=== PATIENT | male | born 1940 | race Caucasian/White ===

== ENCOUNTER 2017-07-24 00:25 | Emergency (ER) | payer MEDICARE ==
[~2017-07-24] VITALS: Ht 175.3 cm; Wt 99.3 kg
[~2017-07-24 00:25] MED LIST: AMLODIPINE BESY10 MG PO; CLOPIDOGREL75 MG PO; CRESTOR20 MG PO; HUMULIN R100 UNIT/2 SQ; LEVOTHYROXINE88 MCG PO; PIOGLITAZONE HC45 MG PO
--- OUTSIDE RECORDS SUMMARY | 2017-07-24 00:28 | XMS REPORT ---
Author Author [facility] Address Unknown Phone Unavailable Care Team Providers Care Chalk Machine Operator Name Role Phone JUAN CARLOS SMITH Unavailable Unavailable Problems This patient has no known problems. Allergies, Adverse Reactions, Alerts This patient has no known allergies or adverse reactions. Medications This patient has no known medications. Results Test Description Test Time Test Comments Text Results Atomic Results Result Comments MRI BRAIN WO [place] [id number] [place] [address] Patient Name: FIDE ORTEGA MR #: [id number] : 1940 Age/Sex: 76/M Req # : [id number] Adm Physician: JUAN CARLOS SMITH MD Ordered by: CIRO TAYLOR MD Report #: [id number] Location: [facility] Room/Bed: [facility] Procedure: [id number] MRI/MRI BRAIN WO Exam Date: 01/17/17 Exam Time: 1845 REPORT STATUS: Signed ADDENDUM #1 Nonspecific prominence of CSF flow void at the level of the cerebral aqueduct (best seen in image 10, series 2) with predominant marked ventricular dilatation involving the third and bilateral lateral ventricles and normal size of the fourth ventricle raises and includes the differential possibility of acquired aqueduct stenosis in appropriate clinical setting. Additional findings were informed to the ER physician Dr. Vaz by phone at 9:04 PM on 01/17/2017. Signed by: Dr. Viv Vang M.D. on 01/17/2017 9:06 PM ORIGINAL REPORT History: Confusion, altered mental status. Comparison studies: CT head from 01/17/2017. Technique: Sagittal T2; axial DWI, FLAIR, GRE, T2 , T1, Coronal FLAIR. Intravenous contrast: None Findings: Scalp: Normal in signal . No masses . Bone marrow: Normal in signal intensity. Brain sulci: Appropriate for age. Ventricles: Marked ventricular dilatation predominantly involving the lateral and third ventricles disproportionate to the amount of cerebral volume loss. Parenchyma: Nonspecific bilateral frontoparietal confluent and patchy white matter T2/FLAIR hyperintense foci are likely related to small vessel ischemic changes. 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 No masses, hemorrhage, acute vascular insult. Suprasellar region : No abnormalities. Craniocervical junction: Patent foramen magnum. No Chiari malformation . Vessels: Normal flow-voids in the arteries and sinuses. Incidental finding: Moderate right and mild left fluid within the mastoids. Posterior disc osteophyte complex at level C4-C5 results in moderate canal stenosis (seen only in T2 sagittal images). IMPRESSION: 1. No acute intracranial abnormality. 2. Marked ventriculomegaly disproportionate to the amount of cerebral volume loss, may represent normal pressure hydrocephalus or chronic communicating type hydrocephalus in appropriate clinical setting. 3. Mild supratentorial white matter microvascular ischemic changes. 4. 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 Signed by: Dr. Viv Vang M.D. on 01/17/2017 8:31 PM Dictated By: VIV VANG MD 05 Transcribed By: ALEX on 01/17/172030 COPY TO: CIRO TAYLOR MD MRI SPINE CERVICAL WO [place] [id number] Patient Name: FIDE ORTEGA MR #: [id number] : 1940 Age/Sex: 76/M Req #: [id number] [facility] Physician: JUAN CARLOS SMITH MD Ordered by: CIRO TAYLOR MD Report #: [id number] Location: [facility] Room/Bed: [facility] Procedure: [id number] MRI/MRI SPINE CERVICAL WO Exam Date: 01/17/17 Exam Time: 1845 REPORT STATUS: Signed History: Altered mental status, confusion, status post fall. Comparison studies: None Technique: Sagittal T1, T2 and IR, axial T2, T1 and axial gradient echo Intravenous contrast: None Findings: Alignment: Normal lordosis. No scoliosis. Cervicomedullary junction: No abnormalities. Patent foramen magnum. Soft tissues: No T2 hyperintense inflammatory changes. Spinal cord: Normal in size and signal from the foramen magnum through T1 Vertebrae: No fractures, infection or neoplasm. Degenerative changes: C2-C3: No abnormalities. C3-C4: Posterior disc osteophytic complex results in mild canal stenosis. Moderate right and mild left foraminal stenosis due to facet and uncovertebral arthrosis. C4 -C5: Moderate degenerative disc disease with decreased intervertebral disc space and endplate sclerosis. Posterior disc osteophyte complex and thickened ligamentum flavum results in severe canal stenosis. Bilateral severe foraminal stenosis due to facet and uncovertebral arthrosis. C5-C6: Mild degenerative disc disease. Posterior disc osteophyte complex with superimposed 4 mm left paracentral/subarticular disc protrusion effaces and indents anterior thecal sac and results in severe canal stenosis. Bilateral severe foraminal stenosis due to facet and uncovertebral arthrosis. C6-C7: Mild degenerative disc disease. Posterior disc osteophyte complex asymmetric to the left results in moderate canal stenosis. Bilateral moderate foraminal stenosis due to facet and uncovertebral arthrosis. C7-T1 : No abnormalities. IMPRESSION: 1. Multilevel cervical spondylosis extends from level C3-C4 to C6-C7. 2. Severe canal stenosis at C4-C5 and C5-C6. Moderate canal stenosis at C6-C7 and mild canal stenosis at C3-C4. 3. Multilevel foraminal stenosis, particularly moderate right and mild left at C3-C4, bilateral severe at C4-C5 and C5-C6, bilateral moderate at C6-C7. Signed by: Dr. Viv Vang M.D. on 01/17/2017 9:14 PM Dictated By: VIV VANG MD 13 COPY TO: CIRO TAYLOR MD PELVIS AP 1-2 VIEWS [place] [address] Patient Name: FIDE ORTEGA MR #: [id number] : 1940 Age/Sex: 76/M Req #: [id number] Adm Physician: Ordered by: CIRO TAYLOR MD Report #: [id number] Location: ER Room/Bed: Procedure: [id number] DX/PELVIS AP 1-2 VIEWS Exam Date: 01/17/17 Exam Time: 1120 REPORT STATUS: Signed PROCEDURE: X-RAY PELVIS, AP VIEW COMPARISON: None. INDICATIONS: FALL FINDINGS: The right hip and proximal femur are normal. There is asymmetry of the appearance of the left hip, which may be a consequence of rotation. The joint spaces are well-maintained. Sacroiliac joints are intact. Sacral foramina are intact superiorly. Degenerative disc changes of the lower lumbar spine partially visualized. Atherosclerotic vascular calcifications. CONCLUSION: Asymmetry of the left hip with superimposition of the greater trochanter over the lateral aspect of the femoral head and neck may be related to rotation. Dedicated radiographs of the left hip are suggested for further evaluation, particularly if the patient endorses left hip pain. Dictated by: Christel Marin M.D. on 2016 at 12:11 Electronically approved by: Christel Marin M.D. on 2016 at 12:11 Dictated By: CHRISTEL MARIN MD 1211 Transcribed By: RILEY on 01/17/17 1211 COPY TO: CIRO TAYLOR MD CHEST SINGLE (PORTABLE) [place] [address] Patient Name: FIDE ORTEGA MR #: [id number] : 1940 Age/Sex: 76/M Req #: [id number] Adm Physician: Ordered by: CIRO TAYLOR MD Report #: [id number] Location: ER Room/Bed: Procedure: [id number] DX/CHEST SINGLE (PORTABLE) Exam Date: 01/17/17 Exam Time: 1120 REPORT STATUS: Signed PROCEDURE: CHEST SINGLE (PORTABLE) COMPARISON: None. INDICATIONS: FALL FINDINGS: The lungs are well-inflated. There is patchy airspace opacity in the perihilar region of the right lung. No pleural effusion or pneumothorax. Cardiomediastinal contour and pulmonary vasculature are within normal limits for portable, AP technique. No acute osseous abnormality. CONCLUSION: Patchy right perihilar airspace disease may reflect atelectasis, pneumonia, or pulmonary contusion in the setting of recent fall. No displaced rib fracture. Dictated by: Christel Marin M.D. on 01/17/2017 at 12: 15 Electronically approved by: Christel Marin M.D. on 01/17/2017 at 12:15 Dictated By: CHRISTEL MARIN MD 121 Transcribed By: RILEY on 01/17/17 1215 COPY TO : CIRO TAYLOR MD CT BRAIN WO [facility] [address] [place] [address] Patient Name: FIDE ORTEGA MR #: [id number] : 1940 Age/Sex: 76/M Req # : [id number] Adm Physician: Ordered by: CIRO TAYLOR MD Report #: [id number] Location: ER Room/Bed: Procedure: [id number] CT/CT BRAIN WO Exam Date: 01/17/17 Exam Time: 1120 REPORT STATUS: Signed Exam: Head CT without contrast History: Frequent falls Comparison studies: None Technique: Axial images were obtained from the skull base to the vertex. Coronal and sagittal images reconstructed from the axial data. Intravenous contrast: None Findings: Scalp: No abnormalities. Bones: No fractures, blastic or lytic lesions. Brain sulci: Appropriate for age. Ventricles: Moderate dilatation of the ventricles disproportionate to sulcal size. Findings can be seen with chronic indicating hydrocephalus/normal pressure hydrocephalus (NPH) in the appropriate context. Extra-axial spaces: No masses, no fluid collection. Parenchyma: No mass, acute hemorrhage or acute cortical vascular insults. Small chronic cortical insult with encephalomalacia centered in the left middle temporal gyrus of the left lateral temporal lobe. A few subtle hypodensities in the supratentorial white matter are nonspecific but most compatible with chronic small vessel ischemic changes. Sellar/ suprasellar region: No abnormalities. Craniocervical junction: Patent foramen magnum. No Chiari one malformation. Incidental findings: Atherosclerotic calcifications in the carotid siphons and right intradural vertebral artery. Mild nonspecific partial mastoid opacification, right greater than left. Underpneumatized and sclerotic right mastoids are sequela of chronic inflammation. Left lens replacement related to previous scattered surgery. IMPRESSION: 1. No acute abnormalities. 2. Mild chronic microvascular ischemic changes. 3. Chronic left middle temporal cortical insult. 4. Ventriculomegaly disproportionate to sulcal size. Recommend clinical correlation for normal pressure hydrocephalus. No acute hydrocephalus. Findings discussed Dr. Taylor at 12:08 PM on 01/17/2017. Signed by: Dr. Christel Sims M.D. on 01/17/2017 12:11 PM Dictated By: CHRISTEL SIMS MD 1211 Transcribed By: ALEX on 01/17/171210 COPY TO: CIRO TAYLOR MD
[2017-07-24 02:42] LABS: BASOPHILS % 0.2 % (0.0-1.0); EOSINOPHILS # (AUTO) 0.3 (0.0-0.4); EOSINOPHILS % 3.4 % (0.0-6.0); HEMATOCRIT 33.9 % (38.2-49.6); HEMOGLOBIN 10.9 g/dL (14.0-18.0); LYMPHOCYTES # (AUTO) 1.5 (1.0-3.2); LYMPHOCYTES % 16.2 % (18.0-39.1); MEAN CORPUSCULAR HEMOGLOBIN 27.9 pg (28-32); MEAN CORPUSCULAR HGB CONC 32.2 g/dL (31-35); MEAN CORPUSCULAR VOLUME 86.9 fL (81-99); MONOCYTES # (AUTO) 0.9 (0.2-0.8); NEUTROPHILS # (AUTO) 6.5 (2.1-6.9); NEUTROPHILS % 70.1 % (38.7-80.0); PLATELET COUNT 238 x10e3/uL (140-360); RED CELL DISTRIBUTION WIDTH 15.9 % (11.7-14.4)
[2017-07-24 03:04] LABS: ALBUMIN 3.5 g/dL (3.5-5.0); ALBUMIN/GLOBULIN RATIO 0.9 (0.8-2.0); ANION GAP 14.1 mmol/L (8-16); CALCIUM 9.6 mg/dL (8.4-10.2); CREATININE, SERUM 1.38 mg/dL (0.72-1.25); POTASSIUM 4.1 mmol/L (3.5-5.1)
[2017-07-24 03:24] VITALS: BP 152/79
== END 2017-07-24 03:55 | disposition home or self-care (01) ==
LOC: ER 00:25
DX: M62.81 Muscle weakness (generalized) (principal); E11.9 Type 2 diabetes mellitus without complications; I10 Essential (primary) hypertension; I51.9 Heart disease, unspecified; Z79.02 Long term (current) use of antithrombotics/antiplatelets; Z79.4 Long term (current) use of insulin; Z91.81 History of falling
CPT/HCPCS: 36415; 80053; 85025; 99283

== ENCOUNTER 2017-08-29 18:35 | Inpatient (IN) | payer MEDICARE ==
[~2017-08-29] VITALS: Ht 175.3 cm; Wt 108.5 kg
--- OUTSIDE RECORDS SUMMARY | 2017-08-29 18:38 | XMS REPORT | Continuity of Care Document ---
Author Author [facility] Organization [facility] Address [address] [place] [address] Phone Unavailable Care Team Providers Care Stake Setter Name Role Phone LOREN HERRERA M.D. PCP Insurance Providers Guarantor Kurt Renee Address [address] [place] [address] [address] [place] [address] Email PT DECLINED Payer [employer] Medicare Complete Policy Number [id number] Subscriber's Name Kurt Renee Relationship 18 Self / Same As Patient Group Number [id number] Effective Date 17 Advance Directives Directive Response Recorded Date/Time Does the patient have an advance directive? No 01/17/17 9:40pm If yes, is advance directive on file with [facility]? No 01/17/17 9:40pm If not on file with [facility] will patient provide a copy? No 01/17/17 9:40pm Do you have a Directive to Physician? No 07/24/17 3:50am Do you have a Medical Power of Pick Up Attendant? No 07/24/17 3:50am Do you have an out of hospital Do Not Resuscitate Order? No 07/24/17 3:50am Do you have any special needs we should be aware of? No 05/01/18 3:50am Do you have a support person here with you today? No 07/24/17 3:50am Did patient receive Notice of Privacy Practices? Yes 07/24/17 3:50am Did patient receive patient rights and responsibilities? Yes 07/24/17 3:50am Problems No problem information available. Medications Current Home Medications Medication Dose Units Route Directions Days Qty Instructions Start Date Amlodipine Besylate 10 Mg Tablet 10 Mg Oral Daily 30 Tab Clopidogrel Bisulfate (Clopidogrel) 75 Mg Tablet 75 Mg Oral Daily 30 Tab Insulin Regular, Human (Humulin R) 100 Unit/1 Ml Vial 40 Unit Sub-Q Daily Levothyroxine Sodium 88 Mcg Tablet 0.088 Mcg Oral Daily 30 Tab Pioglitazone Hcl 45 Mg Tablet 45 Mg Oral Daily 30 Tab Rosuvastatin Calcium (Crestor) 20 Mg Tablet 20 Mg Oral Bedtime Social History Social History Problem Response Recorded Date/Time Onset Date Status Hx Psychiatric Problems No 01/17/2017 9:40pm Not Applicable Not Applicable Hx Eating Disorder No 01/17/2017 9:40pm Not Applicable Not Applicable Hx Alcohol Use No 01/17/2017 9:40pm Not Applicable Not Applicable Smoking Status Start Date Stop Date Never Smoker Hospital Discharge Instructions No hospital discharge instruction information available. Plan of Care Discharge Date 07/24/17 3:55am Disposition HOME, SELF-CARE Condition at Discharge Stable Instructions/Education Provided Weakness (Generalized) Forms Provided Work/School Excuse Prescriptions See Medication Section Additional Instructions/Education FOLLOW UP WITH PRIMARY CARE PHYSICIAN TODAY TO EVAL FOR REHAB TO STRENGTHEN LEG MUSCLES Functional Status No functional status information available. Allergies, Adverse Reactions, Alerts No known allergies. Immunizations No immunization information available. Vital Signs Acute Vital Signs Vital Response Date/Time Temperature (Fahrenheit) 97.8 degrees F (97.6 - 99.5) 07/24/2017 3:24am Pulse Pulse Rate (adult) 18 bpm (60 - 90) 07/24/2017 3:24am Respiratory Rate 18 bpm (12 - 24) 07/24/2017 3:24am Blood Pressure 152/79 mm Hg 07/24/2017 3:24am Height 5 ft 9 in 07/24/2017 12:33am Weight 219 lb 07/24/2017 12:33am Body Mass Index 32.3 kg/m^2 07/24/2017 12:33am Results Laboratory Results Test Name Result Units Flags Reference Collection Date/Time Result Date/ Time Comments Prothrombin Time 13.9 seconds 11.9-14.5 01/17/2017 10:40am 01/17/2017 11:32am Prothromb Time International Ratio 1.02 01/17/2017 10:40am 2016 11:32am Oral Anticoagulant Therapy INR Values: 1. Low Intensity Therapy 1.5 - 2.0 2. Moderate Intensity Therapy 2.0 - 3.0 3. High Intensity Therapy(1) 2.5 - 3.5 4. High Intensity Therapy(2) 3.0 - 4.0 5. Panic Value INR > 5.0 Activated Partial Thromboplast Time 28.4 seconds 23.8-35.5 01/17/2017 10 :40am 01/17/2017 11:32am Urine Color YELLOW YELLOW 01/17/2017 10:40am 01/17/2017 11:29am Urine Clarity CLEAR CLEAR 01/17/2017 10:40am 01/17/2017 11:29am Urine Specific [place] 1.020 1.010-1.025 01/17/2017 10:40am 2016 11:29am Urine pH 5 5 - 7 01/17/2017 10:40am 01/17/2017 11:29am Urine Leukocyte Esterase NEGATIVE NEGATIVE 01/17/2017 10:40am 2016 11:29am Urine Nitrite NEGATIVE NEGATIVE 01/17/2017 10:40am 01/17/2017 11: 29am Urine Protein 2+ H NEGATIVE 01/17/2017 10:40am 01/17/2017 11:29am Urine Glucose (UA) 3+ H NEGATIVE 01/17/2017 10:40am 01/17/2017 11: 29am Urine Ketones 2+ H NEGATIVE 01/17/2017 10:40am 01/17/2017 11:29am Urine Urobilinogen 0.2 mg/dL 0.2 - 1 01/17/2017 10:40am 01/17/2017 11: 29am Urine Bilirubin NEGATIVE NEGATIVE 01/17/2017 10:40am 01/17/2017 11: 29am Urine Blood 4+ H NEGATIVE 01/17/2017 10:40am 01/17/2017 11:29am Urine WBC 0-5 /HPF 0-5 01/17/2017 10:40am 01/17/2017 11:48am Urine RBC 6-10 /HPF H 0-5 01/17/2017 10:40am 01/17/2017 11:48am Urine Bacteria FEW /HPF NONE 01/17/2017 10:40am 01/17/2017 11:48am Urine Epithelial Cells RARE /LPF NONE 01/17/2017 10:40am 01/17/2017 11: 48am Urine Amorphous Sediment MODERATE H FEW 01/17/2017 10:40am 01/17/2017 11:48am Urine Coarse Granular Casts 6-10 H 0 01/17/2017 10:40am 01/17/2017 11: 48am Bedside Glucose 229 mg/dL H 70-120 01/22/2017 11:13am 01/22/2017 11: 37am Meter ID: [id number] Lactic Acid Level 21.3 MG/DL H 4.5-19.8 01/17/2017 10:40am 01/17/2017 12 :40pm Magnesium Level 1.7 MG/DL 1.3-2.1 01/19/2017 5:40am 01/19/2017 6:46am Creatine Kinase 405 IU/L H 30-200 01/20/2017 6:43am 01/20/2017 7:32am Creatine Kinase MB 1.70 ng/mL 0.00-5.00 01/18/2017 6:04am 01/18/2017 7: 52am Troponin I 0.030 ng/mL 0-0.300 01/18/2017 6:04am 01/18/2017 7:52am Thyroid Stimulating Hormone (TSH) 0.362 uIU/mL 0.350-4.940 01/19/2017 5: 40am 01/19/2017 6:54am Albumin (PEP) 2.3 g/dL L 2.9-4.4 01/20/2017 6:43am 01/23/2017 9:30pm Bxdlj-8-Oaewtubqo 0.3 g/dL 0.0-0.4 01/20/2017 6:43am 01/23/2017 9:30pm Shein-4-Zkefdqyqf 1.0 g/dL 0.4-1.0 01/20/2017 6:43am 01/23/2017 9:30pm Beta Gamma Globulin 0.9 g/dL 0.7-1.3 01/20/2017 6:43am 01/23/2017 9: 30pm Gamma Globulins 0.9 g/dL 0.4-1.8 01/20/2017 6:43am 01/23/2017 9:30pm Total Protein (PEP) 5.5 g/dL L 6.0-8.5 01/20/2017 6:43am 01/23/2017 9: 30pm Globulin 3.2 g/dL 2.2-3.9 01/20/2017 6:43am 01/23/2017 9:30pm [place] Light Chain Analysis 28.7 mg/L H 3.3-19.4 01/20/2017 6:43am 2016 9:30pm Lambda Light Chain Analysis 17.3 mg/L 5.7-26.3 01/20/2017 6:43am 2016 9:30pm Totl [place]/Lambda Light Chain Ratio 1.66 H 0.26-1.65 01/20/2017 6:43am 01/23/2017 9:30pm Performed at: - [facility] [address] [id number] Entry Level Sales Associate: Zack Young MD, Phone: [phone] Performed at: DA - [facility] [address] [id number] Entry Level Sales Associate: OLINDA Cassidy MD, Phone: [phone] Protein Electrophoresis M-Darrick Not Observed g/dL Not Observed 2016 6:43am 01/23/2017 9:30pm Albumin/Globulin Ratio 0.7 0.7-1.7 01/20/2017 6:43am 01/23/2017 9: 30pm Protein Electrophoresis Note Comment . 01/20/2017 6:43am 01/23/2017 9 :30pm Protein electrophoresis scan will follow via computer, mail, or machine heel sprayer delivery. HIV (1&2) Antibody NON-REACTIVE NONREACTIVE 01/19/2017 5:40am 2016 6:35am HIV P24 Antigen NON-REACTIVE NONREACTIVE 01/19/2017 5:40am 2016 6:35am White Blood Count 9.21 x10e3/uL 4.8-10.8 07/24/2017 2:30am 07/24/2017 3 :04am Red Blood Count 3.90 x10e6/uL L 4.3-5.7 07/24/2017 2:07/24/2017 3: 04am Hemoglobin 10.9 g/dL L 14.0-18.0 07/24/2017 2:07/24/2017 3:04am Hematocrit 33.9 % L 38.2-49.6 07/24/2017 2:07/24/2017 3:04am Mean Corpuscular Volume 86.9 fL 81-99 07/24/2017 2:07/24/2017 3: 04am Mean Corpuscular Hemoglobin 27.9 pg L 28-32 07/24/2017 2:2017 3:04am Mean Corpuscular Hemoglobin Concent 32.2 g/dL 31-35 07/24/2017 2:07/24/2017 3:04am Red Cell Distribution Width 15.9 % H 11.7-14.4 07/24/2017 2:2017 3:04am Platelet Count 238 x10e3/uL 140-360 07/24/2017 2:07/24/2017 3: 04am Neutrophils (%) (Auto) 70.1 % 38.7-80.0 07/24/2017 2:07/24/2017 3: 04am Lymphocytes (%) (Auto) 16.2 % L 18.0-39.1 07/24/2017 2:07/24/2017 3 :04am Monocytes (%) (Auto) 10.0 % 4.4-11.3 07/24/2017 2:07/24/2017 3: 04am Eosinophils (%) (Auto) 3.4 % 0.0-6.0 07/24/2017 2:07/24/2017 3: 04am Basophils (%) (Auto) 0.2 % 0.0-1.0 07/24/2017 2:07/24/2017 3:04am IM GRANULOCYTES % 0.1 % 0.0-1.0 07/24/2017 2:07/24/2017 3:04am Neutrophils # (Auto) 6.5 2.1-6.9 07/24/2017 2:07/24/2017 3:04am Lymphocytes # (Auto) 1.5 1.0-3.2 07/24/2017 2:3007/24/2017 3:04am Monocytes # (Auto) 0.9 H 0.2-0.8 07/24/2017 2:3007/24/2017 3:04am Eosinophils # (Auto) 0.3 0.0-0.4 07/24/2017 2:3007/24/2017 3:04am Basophils # (Auto) 0.0 0.0-0.1 07/24/2017 2:3007/24/2017 3:04am Absolute Immature Granulocyte (auto 0.01 x10e3/uL 0-0.1 07/24/2017 2: 3007/24/2017 3:04am Sodium Level 138 mmol/L 136-145 07/24/2017 2:3007/24/2017 3:05am Potassium Level 4.1 mmol/L 3.5-5.1 07/24/2017 2:3007/24/2017 3:05am Chloride Level 105 mmol/L 98-107 07/24/2017 2:3007/24/2017 3:05am Carbon Dioxide Level 23 mmol/L 22-29 07/24/2017 2:30am 07/24/2017 3: 05am Anion Gap 14.1 mmol/L 8-16 07/24/2017 2:3007/24/2017 3:05am Blood Urea Nitrogen 29 mg/dL H 7-26 07/24/2017 2:3007/24/2017 3:05am Creatinine 1.38 mg/dL H 0.72-1.25 07/24/2017 2:3007/24/2017 3:05am BUN/Creatinine Ratio 21 6-25 07/24/2017 2:3007/24/2017 3:05am Estimat Glomerular Filtration Rate 50 ML/MIN L 60- 07/24/2017 2:3003/2017 3:05am Ranges were taken from the National Kidney Disease Education Program and the National Kid[employer] Foundation literature. Reference ranges: 60 or greater: Normal 16-59 (for 3 consecutive months): Chronic kidney disease 15 or less: Kidney failure Glucose Level 251 mg/dL H 74-118 07/24/2017 2:3007/24/2017 3:05am Calcium Level 9.6 mg/dL 8.4-10.2 07/24/2017 2:30am 07/24/2017 3:05am Total Bilirubin 0.6 mg/dL 0.2-1.2 07/24/2017 2:30am 07/24/2017 3:05am Aspartate Amino Transf (AST/SGOT) 13 IU/L 5-34 07/24/2017 2:30am 2017 3:05am Alanine Aminotransferase (ALT/SGPT) 13 IU/L 0-55 07/24/2017 2:30am 03/2017 3:05am Total Protein 7.5 g/dL 6.5-8.1 07/24/2017 2:30am 07/24/2017 3:05am Albumin 3.5 g/dL 3.5-5.0 07/24/2017 2:30am 07/24/2017 3:05am Globulin 4.0 g/dL H 2.3-3.5 07/24/2017 2:30am 07/24/2017 3:05am Albumin/Globulin Ratio 0.9 0.8-2.0 07/24/2017 2:30am 07/24/2017 3: 05am Alkaline Phosphatase 60 IU/L 40-150 07/24/2017 2:30am 07/24/2017 3: 05am Microbiology Results Procedure Source Organism/Result Collection Date/Time Result Date/Time Result Status Blood Culture Blood NO GROWTH AFTER 5 DAYS, FINAL REPORT 01/17/2017 10: 40am 01/22/2017 11:20am Final Procedures Procedure Status Date Provider(s) BYPASS CEREB VENT TO PERITON CAV W SYNTH SUB, OPEN Completed 01/18/17 GONZALO GUZMAN MD Computed tomography of brain without radiopaque contrast Active 01/17/17 CIRO TAYLOR MD Magnetic resonance imaging of brain without contrast Active 01/17/17 CIRO TAYLOR MD Magnetic resonance imaging of cervical spine without contrast Active CIRO TAYLOR MD Encounters Encounter Location Arrival/Admit Date Discharge/Depart Date Attending Provider Departed Emergency Room [facility] 07/24/17 12:25am 07/24 3:55am LILLIANA MENCAHCA MD Discharged Inpatient [facility] 01/17/17 2:16pm 01/22/17 11:30am JUAN CARLOS SMITH MD
[2017-08-29] MEDS ORDERED: LIDOCAINE JELLY 2% 10ML URO-JET TOP ONE (19:45)
--- NOTE | 2017-08-29 21:09 | Diagnostic Imaging Report ---
EXAM: CT of the abdomen and pelvis WITHOUT contrast HISTORY: Bladder infection, stone protocol, hematuria COMPARISON: None available. TECHNIQUE: The abdomen and pelvis were scanned utilizing a multidetector helical scanner. Coronal and sagittal reformats are available. PROTOCOL: Routine IV CONTRAST: None, which limits sensitivity and specificity of evaluation of the soft tissues and vascular structures. ORAL CONTRAST: None, which limits sensitivity and specificity of evaluation of the bowel. RADIATION DOSE: Total DLP: 755.92 mGy*cm Estimated effective dose: (DLP x 0.015 x size factor) COMPLICATIONS: None FINDINGS: LOWER THORAX: Unremarkable. HEPATOBILIARY: No definite focal hepatic lesions. No biliary ductal dilatation. A 5 mm stone within the dependent portion of the gallbladder. SPLEEN: No splenomegaly. PANCREAS: No focal masses or ductal dilatation. Mild diffuse parenchymal atrophy. ADRENALS: No discrete adrenal nodule. KIDNEYS/URETERS: No hydronephrosis, stones, or solid mass lesion identified. A 3.3 and 1.9 cm fluid density near the superior pole of the left kidney, compatible with cyst. PELVIC ORGANS/BLADDER: A 4.6 cm (AP) x 6 cm (ML) x 4.5 cm (CC) heterogeneous density within the dependent inferior portion of the bladder. PERITONEUM / RETROPERITONEUM: No free air or fluid. GI TRACT: On limited evaluation of the gastrointestinal tract, no dilation or wall thickening identified. The appendix is normal. LYMPH NODES: No pathologically enlarged lymph nodes. VESSELS: Diffuse scattered atherosclerotic vascular calcifications. BONES: Minimal superior endplate age-indeterminate compression deformity involving T12. Multilevel mild to severe degenerative changes of the axial skeleton. SOFT TISSUES: A fat-containing left inguinal hernia. Right-sided radiopaque catheter/lead that terminates within the right lower quadrant of the abdomen, correlate for a ventriculoperitoneal shunt. IMPRESSION: 1. Heterogeneous masslike density within the dependent portion of the urinary bladder, although this may reflect blood clot or debris related to the reported infection, these findings are worrisome for the possibility of bladder carcinoma. Recommend follow-up urology consultation. 2. Cholelithiasis. 3. Left renal cysts. 4. Minimal superior endplate age-indeterminate compression deformity involving T12. Signed by: Rodrigo Ortiz.Sandi., M.M.M. on 08/29/2017 9:05 PM
--- NOTE | 2017-08-29 21:25 | Diagnostic Imaging Report ---
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 LUNGS: Lungs are well inflated. Lungs are clear. There is no evidence of pneumonia or pulmonary edema. PLEURA: No pleural effusion or pneumothorax. HEART AND MEDIASTINUM: The cardiomediastinal silhouette is unremarkable. BONES AND SOFT TISSUES: No acute osseous lesion. Soft tissues are unremarkable. UPPER ABDOMEN: No free air under the diaphragm. IMPRESSION: No acute thoracic abnormality. Signed by: Dr. Jose Guzman M.D. on 08/29/2017 9:21 PM
[2017-08-30] VITALS (8 sets, daily range): BP systolic 121–196; BP diastolic 65–83
[2017-08-30] MEDS ORDERED: DEXTROSE 50% SYRINGE 50 ML IV PRN (00:30)
[2017-08-30] MEDS: SODIUM CHLORIDE 0.9% 1000ML 1,000 ML IV SCH ×3 (00:47→16:15)
[2017-08-30] MEDS: CEFTRIAXONE SOD 1 GM VIAL IV SCH (00:53)
[2017-08-30] MEDS: LEVOTHYROXINE SODIUM 88 MCG TAB PO SCH (06:00)
[2017-08-30] MEDS: INSULIN REGULAR, HUMAN 100 UNIT/1 ML 3ML VIAL SQ SCH ×4 (07:30→21:16)
--- NOTE | 2017-08-30 08:41 | Consultation ---
DATE OF CONSULTATION: August 30, 2017 UROLOGY CONSULTATION REASON FOR CONSULTATION: Gross hematuria. HISTORY OF PRESENT ILLNESS: Kurt Renee is a 76-year-old man who has never had a urological evaluation. The patient has reported longstanding decreased urinary force of stream as well as at least 4 times nocturia. The patient denies any urinary incontinence. Denies any dysuria. The patient presented to the emergency room with a 2-day history of severe gross hematuria. He was evaluated and admitted. Continuous flow irrigation Loya was placed. Due to recurrent clots, it needed to be placed on continuous bladder irrigation. This was done under my direction, with discussion with the emergency room physician. The patient denies previous urinary tract infections and urolithiasis. PAST MEDICAL AND SURGICAL HISTORY 1. Diabetes mellitus. 2. Hypertension. 3. Hypercholesterolemia. 4. Status post left toe amputation. 5. Coronary artery disease, status post PTCA and stent placement. SOCIAL HISTORY: The patient quit smoking in 1979. Denies current smoking, ethanol and drug use. 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 FAMILY HISTORY: Noncontributory to the active urological problems. ALLERGIES: NONE KNOWN. MEDICATIONS: Please refer to the MAR. They also specifically include daily baby aspirin. REVIEW OF SYSTEMS: As discussed above in the history of present illness and past medical history, otherwise negative for all systems. PHYSICAL EXAMINATION GENERAL: Very pleasant, 76-year-old man lying in bed in no apparent distress. He is currently afebrile. VITAL SIGNS: Currently stable. ABDOMEN: Soft. Nondistended and nontender without costovertebral angle tenderness. The kidneys are not palpable without hepatosplenomegaly. No obvious evidence of hernia. The patient is obese. GENITOURINARY: Testes are descended bilaterally. The left testis is severely atrophic. The right testis is unremarkable. 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 There is a large-bore Loya catheter in place that has slow continuous bladder irrigation going with blood-tinged urine out. I sped up the irrigation, and there were a few blood clots that passed, and the hematuria seems to be diluted well with more brisk continuous irrigation. RECTAL: Digital rectal examination is deferred at the present time. For the remaining physical examination systems, please refer to the admission history and physical on the chart. LABORATORY STUDIES: I do not see any blood work in the computer from yesterday. The patient on July 24 had a hemoglobin that was 10.9. His creatinine was 1.38 from that same date. There is no recent urinalysis. I do not know if there are any laboratory issues. CT scan of the abdomen and pelvis was performed last night, revealing 2 cysts on the left kidney as well as density within the dependent portion of the bladder most likely related to blood clots as well and a fat-containing left inguinal hernia and right-sided opaque shunt that seems to correlate to a ventriculoperitoneal shunt that the patient did not mention to me on history. ASSESSMENT 1. Gross hematuria. 2. Nocturia. 3. Decreased urinary force of stream. 4. Obesity. 5. Atrophic left testis. 6. Paraphimosis. 7. Left renal cyst. 8. Left inguinal hernia. 9. Loya catheter in situ. PLAN 1. Continue continuous bladder irrigation. 2. Hold aspirin. 3. I will attempt to post the patient tomorrow to the surgery schedule for cystoscopy with retrograde pyelograms and indicated procedures. I informed the patient there could potentially be a bladder tumor in there that would need resection at that time, and he is agreeable to that. PROCEDURE NOTE: With minor discomfort to the patient, I reduced his paraphimosis without complication. Thank you very much for involving us in the care of your patient. We will be happy to follow him along with you, as well as an outpatient. Job#: [id number] cc:LOREN MONDRAGON MD
[2017-08-30] MEDS: AMLODIPINE BESYLATE 10 MG TAB PO SCH (09:00)
[2017-08-30 09:18] LABS: BILIRUBIN,URINE NEGATIVE (NEGATIVE); CLARITY,URINE CLOUDY (CLEAR); COLOR,URINE RED (YELLOW); KETONES,URINE TRACE (NEGATIVE); LEUKOCYTE ESTERASE ,URINE 1+ (NEGATIVE); NITRITE,URINE POSITIVE (NEGATIVE); PROTEIN,URINE DIPSTICK 3+ (NEGATIVE); RBC,URINE >50 /HPF (0-5); URINE UROBILINOGEN 1 mg/dL (0.2 - 1); WBC,URINE (MAN) 21-50 /HPF (0-5)
[2017-08-30 09:21] LABS: ALBUMIN 3.8 g/dL (3.5-5.0); ANION GAP 15.2 mmol/L (8-16); CALCIUM 9.7 mg/dL (8.4-10.2); CREATININE, SERUM 1.66 mg/dL (0.72-1.25); PARTIAL THROMBOPLASTIN TIME 18.7 seconds (23.8-35.5); POTASSIUM 4.2 mmol/L (3.5-5.1); PROTHROMBIN TIME 12.4 seconds (11.9-14.5)
[2017-08-30 09:22] LABS: BASOPHILS % 0.3 % (0.0-1.0); EOSINOPHILS # (AUTO) 0.1 (0.0-0.4); EOSINOPHILS % 1.7 % (0.0-6.0); HEMATOCRIT 36.6 % (38.2-49.6); HEMOGLOBIN 11.6 g/dL (14.0-18.0); LYMPHOCYTES # (AUTO) 1.5 (1.0-3.2); MEAN CORPUSCULAR HEMOGLOBIN 27.1 pg (28-32); MEAN CORPUSCULAR HGB CONC 31.7 g/dL (31-35); MEAN CORPUSCULAR VOLUME 85.5 fL (81-99); MONOCYTES # (AUTO) 0.6 (0.2-0.8); NEUTROPHILS # (AUTO) 4.5 (2.1-6.9); NEUTROPHILS % 66.8 % (38.7-80.0); PLATELET COUNT 258 x10e3/uL (140-360); RED BLOOD COUNT 4.28 x10e6/uL (4.3-5.7); RED CELL DISTRIBUTION WIDTH 15.3 % (11.7-14.4)
[2017-08-30] MEDS ORDERED: MORPHINE SULFATE INJ 4 MG/ML INJ IV PRN (13:30)
[2017-08-30] MEDS: MORPHINE SULFATE 2 MG/ML SYR IV PRN ×3 (13:48→23:45)
[2017-08-30] MEDS ORDERED: PROPOFOL IV EMULSION 10 MG/ML 20 ML VIAL ONE (14:43)
[2017-08-30] MEDS ORDERED: DEXAMETHASONE SOD PHOS INJ 4 MG/ML VIAL ONE (14:43)
[2017-08-30] MEDS ORDERED: DESFLURANE 240 ML BTL INH ONE (14:43)
[2017-08-30] MEDS ORDERED: LIDOCAINE HCL 2% LOCAL INJ 5 ML SDV VIAL INJ ONE (14:43)
[2017-08-30] MEDS ORDERED: ONDANSETRON HCL INJ 2 MG/ML VIAL ONE (14:43)
[2017-08-30] MEDS ORDERED: BELLADONNA/OPIUM 60 MG SUPP PR PRN (15:00)
[2017-08-30] MEDS: ONDANSETRON HCL INJ 2 MG/ML VIAL IV PRN (18:15)
[2017-08-30] MEDS: ATORVASTATIN 40 MG TAB PO SCH (21:16)
[2017-08-31] VITALS (7 sets, daily range): BP systolic 115–177; BP diastolic 63–76
[2017-08-31] MEDS: CEFTRIAXONE SOD 1 GM VIAL IV SCH (01:05)
[2017-08-31] MEDS: SODIUM CHLORIDE 0.9% 1000ML 1,000 ML IV SCH ×3 (01:50→17:25)
[2017-08-31] MEDS: LEVOTHYROXINE SODIUM 88 MCG TAB PO SCH (05:17)
[2017-08-31 05:38] LABS: BASOPHILS % 0.2 % (0.0-1.0); EOSINOPHILS % 0.1 % (0.0-6.0); HEMATOCRIT 31.5 % (38.2-49.6); HEMOGLOBIN 9.9 g/dL (14.0-18.0); LYMPHOCYTES # (AUTO) 1.7 (1.0-3.2); LYMPHOCYTES % 16.4 % (18.0-39.1); MEAN CORPUSCULAR HGB CONC 31.4 g/dL (31-35); MEAN CORPUSCULAR VOLUME 85.8 fL (81-99); MONOCYTES # (AUTO) 0.7 (0.2-0.8); MONOCYTES % 7.2 % (4.4-11.3); NEUTROPHILS # (AUTO) 7.7 (2.1-6.9); NEUTROPHILS % 75.7 % (38.7-80.0); PLATELET COUNT 233 x10e3/uL (140-360); RED BLOOD COUNT 3.67 x10e6/uL (4.3-5.7); RED CELL DISTRIBUTION WIDTH 15.3 % (11.7-14.4)
[2017-08-31 06:01] LABS: ALBUMIN 3.4 g/dL (3.5-5.0); CALCIUM 9.2 mg/dL (8.4-10.2); CREATININE, SERUM 1.59 mg/dL (0.72-1.25)
[2017-08-31] MEDS: INSULIN REGULAR, HUMAN 100 UNIT/1 ML 3ML VIAL SQ SCH (07:30)
[2017-08-31] MEDS: AMLODIPINE BESYLATE 10 MG TAB PO SCH (08:25)
[2017-08-31] MEDS ORDERED: DEXTROSE 50% SYRINGE 50 ML IV PRN (09:30)
--- NOTE | 2017-08-31 09:59 | Consultation ---
DATE OF CONSULTATION: August 30, 2017 CARDIOLOGY CONSULTATION REASON FOR CONSULTATION: Cardiac clearance. HPI: This is a 76-year-old male that presented with dysuria. According to the patient, he was having difficulty with voiding, hematuria, urinary frequency, and retention. He saw Dr. Goff, and he has been started on continuous bladder irrigation and planned for surgical intervention today. He stated having a history of cardiac stent placement in the past, but does not remember the crowd controller's name. He also stated he is planned for cardiac stress test at his cardiology clinic coming up next month by [facility]. He denies any chest pain, any palpitations, any shortness of breath, or diaphoresis. PAST MEDICAL HISTORY: Hypertension, diabetes, CAD, hypothyroidism, hyperlipidemia, hydrocephalus. 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 FAMILY HISTORY: Noncontributory. SOCIAL HISTORY: He quit smoking a long time ago. Lives at home by himself. MEDICATION: See med list. ALLERGIES: HE IS NOT ALLERGIC TO ANY MEDICATION. REVIEW OF SYSTEMS: Negative except those mentioned above. He is positive with hematuria. PHYSICAL EXAMINATION VITAL SIGNS: Temperature 98, heart rate 97, blood pressure 150/66, respirations 19, oxygen saturation 100% on 2 L nasal cannula. GENERAL: He is awake, alert and oriented times 3. HEENT: Mucous membrane moist. NECK: Supple. LUNGS: Bilateral clear to auscultation. CARDIOVASCULAR: S1 and S2 present. ABDOMEN: Soft. NEUROLOGICAL: Intact. EXTREMITIES: With no edema. LABS: Sodium 135, potassium 4, chloride 103, CO2 21, BUN 22, creatinine 1.59, glucose 205. White blood cells 10.1, hemoglobin 9.9, hematocrit 31.5, and platelets 233,000. PT 12.4, PTT 18.7 and INR 1. IMPRESSION 1. Hematuria. 2. Coronary artery disease with stents. 3. Diabetes. 4. Hypertension. 5. Hypothyroidism. 6. Renal insufficiency. 7. Hyperlipidemia. 8. Anemia. 9. History of hydrocephalus with ventriculoperitoneal shunt placement. ASSESSMENT AND PLAN 1. Will go ahead and get an echocardiogram to reassess the LV and valve function. 2. Will get a 12-lead EKG. 3. He is planned for cystoscopy this afternoon. His vital signs are stable. Will continue his home medications. Thank you for this consultation. DICTATED BY SUJATHA VILLATORO NP Job#: [id number] RI
[2017-08-31] MEDS ORDERED: IOPAMIDOL 610MG/1ML 300 MG/ML VIAL IV ONE (10:53)
[2017-08-31] MEDS ORDERED: BELLADONNA/OPIUM 30 MG SUPP RC PRN (11:15)
[2017-08-31] MEDS: INSULIN LISPRO 100 UNIT/1 ML 3ML VIAL SQ SCH ×3 (11:30→21:24)
[2017-08-31] MEDS ORDERED: FENTANYL CITRATE/PF 100MCG/2 ML INJ ONE (15:15)
[2017-08-31] MEDS ORDERED: MIDAZOLAM HCL 2 MG/2 ML VIAL ONE (15:15)
[2017-08-31] MEDS ORDERED: BELLADONNA/OPIUM 30 MG SUPP RC ONE (15:39)
[2017-08-31] MEDS ORDERED: LOSARTAN POTASSIUM 25 MG TAB PO ONE (17:30)
[2017-08-31] MEDS: ATORVASTATIN 40 MG TAB PO SCH (21:24)
[2017-09-01 00:28] VITALS: BP 150/60
[2017-09-01] MEDS: CEFTRIAXONE SOD 1 GM VIAL IV SCH (01:15)
[2017-09-01] MEDS: LEVOTHYROXINE SODIUM 88 MCG TAB PO SCH (05:55)
[2017-09-01 05:59] VITALS: BP 153/67
[2017-09-01 08:00] VITALS: BP 163/67
[2017-09-01] MEDS: SODIUM CHLORIDE 0.9% 1000ML 1,000 ML IV SCH ×2 (08:21→16:55)
[2017-09-01] MEDS: AMLODIPINE BESYLATE 10 MG TAB PO SCH (08:51)
[2017-09-01] MEDS: INSULIN LISPRO 100 UNIT/1 ML 3ML VIAL SQ SCH ×4 (08:53→20:30)
[2017-09-01] MEDS: ONDANSETRON HCL INJ 2 MG/ML VIAL IV PRN ×2 (12:40→23:00)
[2017-09-01] MEDS: MORPHINE SULFATE 2 MG/ML SYR IV PRN ×3 (12:40→22:58)
[2017-09-01 17:03] VITALS: BP 145/67
[2017-09-01 20:26] VITALS: BP 170/70
[2017-09-01] MEDS: ATORVASTATIN 40 MG TAB PO SCH (20:29)
[2017-09-01 22:38] VITALS: BP 155/67
[2017-09-02] VITALS (7 sets, daily range): BP systolic 147–165; BP diastolic 65–69
[2017-09-02] MEDS: CEFTRIAXONE SOD 1 GM VIAL IV SCH ×2 (00:49→23:14)
[2017-09-02] MEDS: MORPHINE SULFATE 2 MG/ML SYR IV PRN ×2 (03:06→06:42)
[2017-09-02] MEDS: LEVOTHYROXINE SODIUM 88 MCG TAB PO SCH (06:42)
[2017-09-02] MEDS: AMLODIPINE BESYLATE 10 MG TAB PO SCH (09:22)
[2017-09-02] MEDS: SODIUM CHLORIDE 0.9% 1000ML 1,000 ML IV SCH ×2 (09:22→20:45)
[2017-09-02] MEDS: INSULIN LISPRO 100 UNIT/1 ML 3ML VIAL SQ SCH ×4 (09:25→20:45)
[2017-09-02] MEDS: ATORVASTATIN 40 MG TAB PO SCH (20:44)
[2017-09-03] VITALS (8 sets, daily range): BP systolic 146–188; BP diastolic 65–77
[2017-09-03] MEDS: LEVOTHYROXINE SODIUM 88 MCG TAB PO SCH (05:19)
[2017-09-03] MEDS ORDERED: BELLADONNA/OPIUM 30 MG SUPP RC ONE (06:23)
[2017-09-03] MEDS ORDERED: IOPAMIDOL 610MG/1ML 300 MG/ML VIAL IV ONE (06:23)
[2017-09-03] MEDS: INSULIN LISPRO 100 UNIT/1 ML 3ML VIAL SQ SCH ×4 (07:30→21:00)
[2017-09-03] MEDS: AMLODIPINE BESYLATE 10 MG TAB PO SCH (10:00)
[2017-09-03] MEDS: SODIUM CHLORIDE 0.9% 1000ML 1,000 ML IV SCH (10:51)
[2017-09-03] MEDS ORDERED: MORPHINE SULFATE 2 MG/ML SYR IV PRN (12:00)
[2017-09-03 12:33] LABS: BASOPHILS % 0.2 % (0.0-1.0); EOSINOPHILS % 0.2 % (0.0-6.0); HEMATOCRIT 30.2 % (38.2-49.6); HEMOGLOBIN 9.5 g/dL (14.0-18.0); LYMPHOCYTES # (AUTO) 0.9 (1.0-3.2); LYMPHOCYTES % 10.1 % (18.0-39.1); MEAN CORPUSCULAR HEMOGLOBIN 27.1 pg (28-32); MEAN CORPUSCULAR HGB CONC 31.5 g/dL (31-35); MEAN CORPUSCULAR VOLUME 86.3 fL (81-99); MONOCYTES # (AUTO) 0.5 (0.2-0.8); MONOCYTES % 5.2 % (4.4-11.3); NEUTROPHILS # (AUTO) 7.7 (2.1-6.9); NEUTROPHILS % 83.9 % (38.7-80.0); PLATELET COUNT 208 x10e3/uL (140-360); RED CELL DISTRIBUTION WIDTH 15.3 % (11.7-14.4)
[2017-09-03 13:36] LABS: ANION GAP 13.1 mmol/L (8-16); BLOOD UREA NITROGEN 14 mg/dL (7-26); BUN/CREATININE RATIO 13 (6-25); CALCIUM 8.4 mg/dL (8.4-10.2); CARBON DIOXIDE 23 mmol/L (22-29); CHLORIDE 104 mmol/L (98-107); CREATININE, SERUM 1.11 mg/dL (0.72-1.25); EST GLOMERULAR FILTRATION RATE > 60 ML/MIN (60-); GLUCOSE 200 mg/dL (74-118); POTASSIUM 4.1 mmol/L (3.5-5.1); SODIUM 136 mmol/L (136-145)
[2017-09-03] MEDS ORDERED: FENTANYL CITRATE/PF 100MCG/2 ML INJ ONE (14:48)
[2017-09-03] MEDS ORDERED: MIDAZOLAM HCL 2 MG/2 ML VIAL ONE (14:48)
[2017-09-03] MEDS ORDERED: LIDOCAINE HCL 2% LOCAL INJ 5 ML SDV VIAL INJ ONE (18:09)
[2017-09-03] MEDS ORDERED: ONDANSETRON HCL INJ 2 MG/ML VIAL ONE (18:09)
[2017-09-03] MEDS ORDERED: DEXAMETHASONE SOD PHOS INJ 4 MG/ML VIAL ONE (18:09)
[2017-09-03] MEDS ORDERED: SEVOFLURANE INHAL SOLN 250 ML PEN BTL ONE (18:09)
[2017-09-03] MEDS ORDERED: PROPOFOL IV EMULSION 10 MG/ML 20 ML VIAL ONE (18:09)
[2017-09-03] MEDS: ATORVASTATIN 40 MG TAB PO SCH (21:00)
[2017-09-04] VITALS (7 sets, daily range): BP systolic 142–180; BP diastolic 64–74
[2017-09-04] MEDS: CEFTRIAXONE SOD 1 GM VIAL IV SCH (01:54)
[2017-09-04] MEDS: LEVOTHYROXINE SODIUM 88 MCG TAB PO SCH (05:27)
[2017-09-04 05:33] LABS: BASOPHILS % 0.4 % (0.0-1.0); EOSINOPHILS # (AUTO) 0.1 (0.0-0.4); EOSINOPHILS % 1.4 % (0.0-6.0); HEMOGLOBIN 9.3 g/dL (14.0-18.0); LYMPHOCYTES # (AUTO) 0.7 (1.0-3.2); LYMPHOCYTES % 9.5 % (18.0-39.1); MEAN CORPUSCULAR HEMOGLOBIN 27.4 pg (28-32); MEAN CORPUSCULAR HGB CONC 32.1 g/dL (31-35); MEAN CORPUSCULAR VOLUME 85.3 fL (81-99); MONOCYTES # (AUTO) 0.6 (0.2-0.8); MONOCYTES % 8.6 % (4.4-11.3); NEUTROPHILS # (AUTO) 5.6 (2.1-6.9); PLATELET COUNT 219 x10e3/uL (140-360); RED CELL DISTRIBUTION WIDTH 15.4 % (11.7-14.4)
[2017-09-04 05:53] LABS: ANION GAP 12.9 mmol/L (8-16); BLOOD UREA NITROGEN 11 mg/dL (7-26); BUN/CREATININE RATIO 10 (6-25); CARBON DIOXIDE 25 mmol/L (22-29); CHLORIDE 105 mmol/L (98-107); CREATININE, SERUM 1.13 mg/dL (0.72-1.25); EST GLOMERULAR FILTRATION RATE > 60 ML/MIN (60-); GLUCOSE 138 mg/dL (74-118); POTASSIUM 3.9 mmol/L (3.5-5.1); SODIUM 139 mmol/L (136-145)
[2017-09-04] MEDS: INSULIN LISPRO 100 UNIT/1 ML 3ML VIAL SQ SCH ×4 (07:30→20:55)
[2017-09-04] MEDS ORDERED: HYDRALAZINE HCL 20 MG/ML VIAL IV PRN (08:30)
[2017-09-04] MEDS: AMLODIPINE BESYLATE 10 MG TAB PO SCH (09:00)
[2017-09-04] MEDS: ATORVASTATIN 40 MG TAB PO SCH (21:06)
[2017-09-05] VITALS (7 sets, daily range): BP systolic 132–171; BP diastolic 60–71
[2017-09-05] MEDS: CEFTRIAXONE SOD 1 GM VIAL IV SCH (00:52)
[2017-09-05] MEDS: LEVOTHYROXINE SODIUM 88 MCG TAB PO SCH (05:28)
[2017-09-05] MEDS: INSULIN LISPRO 100 UNIT/1 ML 3ML VIAL SQ SCH ×4 (07:30→21:00)
[2017-09-05] MEDS: AMLODIPINE BESYLATE 10 MG TAB PO SCH (09:42)
[2017-09-05 10:14] LABS: % IRON SATURATION 7 % (15-50); IRON 24 ug/dL (65-175); TOTAL IRON BINDING CAPACITY 344 ug/dL (261-478); TRANSFERRIN 246 mg/dL (174-364)
[2017-09-05] MEDS: METOPROLOL TARTRATE 25 MG TAB PO SCH ×2 (12:22→16:42)
[2017-09-05] MEDS: ATORVASTATIN 40 MG TAB PO SCH (21:27)
[2017-09-06] VITALS (8 sets, daily range): BP systolic 134–149; BP diastolic 59–69
[2017-09-06 05:21] LABS: BASOPHILS % 0.3 % (0.0-1.0); EOSINOPHILS # (AUTO) 0.1 (0.0-0.4); EOSINOPHILS % 1.5 % (0.0-6.0); HEMATOCRIT 31.4 % (38.2-49.6); LYMPHOCYTES # (AUTO) 1.2 (1.0-3.2); LYMPHOCYTES % 17.3 % (18.0-39.1); MEAN CORPUSCULAR HGB CONC 31.8 g/dL (31-35); MEAN CORPUSCULAR VOLUME 84.9 fL (81-99); NEUTROPHILS # (AUTO) 4.5 (2.1-6.9); NEUTROPHILS % 65.8 % (38.7-80.0); PLATELET COUNT 215 x10e3/uL (140-360); RED CELL DISTRIBUTION WIDTH 15.4 % (11.7-14.4)
[2017-09-06 05:39] LABS: ALBUMIN 2.9 g/dL (3.5-5.0); ALBUMIN/GLOBULIN RATIO 0.8 (0.8-2.0); ANION GAP 14.2 mmol/L (8-16); CALCIUM 9.3 mg/dL (8.4-10.2); CREATININE, SERUM 1.18 mg/dL (0.72-1.25); POTASSIUM 4.2 mmol/L (3.5-5.1)
[2017-09-06] MEDS: LEVOTHYROXINE SODIUM 88 MCG TAB PO SCH (06:06)
[2017-09-06] MEDS: INSULIN LISPRO 100 UNIT/1 ML 3ML VIAL SQ SCH ×4 (07:30→21:28)
[2017-09-06] MEDS: METOPROLOL TARTRATE 25 MG TAB PO SCH ×2 (09:00→17:26)
[2017-09-06] MEDS: AMLODIPINE BESYLATE 10 MG TAB PO SCH (09:00)
--- NOTE | 2017-09-06 14:10 | Diagnostic Imaging Report ---
PROCEDURE:CHEST 2 VIEWS TECHNIQUE:PA and lateral chest totaling 3 radiographs INDICATION:Shortness of breath COMPARISON:None. FINDINGS: Lungs are clear and symmetrically inflated. No pleural effusions. Normal heart size, mediastinal contour, and pulmonary vasculature. BAR TENDER shunt overlying the right hemithorax. Intact skeleton. CONCLUSION: No acute abnormality. Dictated by: Malcom Garcia M.D. on 09/06/2017 at 14:14 Electronically approved by: Malcom Garcia M.D. on 09/06/2017 at 14:14
--- NOTE | 2017-09-06 16:27 | History and Physical ---
A patient of Dr. Goff and Dr. Murdock. An unfortunate 76-year-old gentleman admitted through the emergency room with complaint of hematuria of few days' duration, history of slow stream, history of SERVICE PLUMBER shunt in December of 2016 for normal-pressure hydrocephalus. He says that he had a fall at that time. He has a history of hypertension, peripheral vascular disease, diabetes. 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 NO KNOWN ALLERGIES. Cannot recall his medications. He did, however, bring bottles of Plavix, Benadryl, nitroglycerin, aspirin, Levoxyl, Norvasc, Actos and Crestor. He also says that he has been on insulin. PHYSICAL EXAMINATION GENERAL: He is a well-developed white male, confused, poor historian. VITAL SIGNS: Temperature 97.6, pulse 91, respiratory rate 20, blood pressure 192/80. HEAD: Normocephalic, atraumatic. EYES: Extraocular . LUNGS: Clear. HEART: Regular rhythm. ABDOMEN: Nontender. Loya catheter is in place with bloody urine. EXTREMITIES: Nonedematous. CT is suggestive of bladder mass or more likely a hematoma. Will hold Plavix and aspirin. Request Cardiology and Urology. The patient will likely require a cystoscopy. Job#: [id number] EV
--- NOTE | 2017-09-06 18:22 | Diagnostic Imaging Report ---
Ventilation/perfusion lung scan Clinical Information: 76 M with acute onset SOB Comparison: Chest radiograph 09/06/2017 Discussion: Xenon-133 gas 8 mCi was administered via inhalation. Dynamic images of the lungs in the posterior projection were obtained through single breath, equilibrium, and washout phases. Distribution of tracer activity appears physiologic throughout the lungs.. There are no segmental ventilatory defects. Washout of tracer is diffusely delayed with no evidence of air trapping. Perfusion images of the lungs were obtained in multiple projections following intravenous administration of approximately 6.5 mCi of Tc-99m MAA. Distribution of tracer appears physiologic throughout the lungs. The contours of the lungs are well demarcated. There are no segmental perfusion defects of any size. The cardiomediastinal silhouette is unremarkable. Impression: 1. Scan findings represent a VERY LOW probability for acute pulmonary embolic disease based on the PIOPED II criteria. 2. Scan evidence of obstructive lung disease. Signed by: Dr. Abby Young M.D. on 09/06/2017 6:19 PM
[2017-09-06] MEDS: ATORVASTATIN 40 MG TAB PO SCH (21:27)
[2017-09-07] VITALS: BP 143/65
[2017-09-07 04:00] VITALS: BP 147/64
[2017-09-07 05:26] LABS: BASOPHILS % 0.3 % (0.0-1.0); EOSINOPHILS # (AUTO) 0.2 (0.0-0.4); EOSINOPHILS % 2.3 % (0.0-6.0); HEMATOCRIT 30.2 % (38.2-49.6); HEMOGLOBIN 9.6 g/dL (14.0-18.0); LYMPHOCYTES # (AUTO) 1.4 (1.0-3.2); LYMPHOCYTES % 19.1 % (18.0-39.1); MEAN CORPUSCULAR HEMOGLOBIN 26.7 pg (28-32); MEAN CORPUSCULAR HGB CONC 31.8 g/dL (31-35); MEAN CORPUSCULAR VOLUME 84.1 fL (81-99); MONOCYTES # (AUTO) 0.9 (0.2-0.8); MONOCYTES % 13.2 % (4.4-11.3); NEUTROPHILS # (AUTO) 4.6 (2.1-6.9); NEUTROPHILS % 64.8 % (38.7-80.0); PLATELET COUNT 214 x10e3/uL (140-360); RED BLOOD COUNT 3.59 x10e6/uL (4.3-5.7); RED CELL DISTRIBUTION WIDTH 15.4 % (11.7-14.4)
[2017-09-07 05:41] LABS: ANION GAP 13.9 mmol/L (8-16); CALCIUM 9.1 mg/dL (8.4-10.2); CREATININE, SERUM 1.28 mg/dL (0.72-1.25); POTASSIUM 3.9 mmol/L (3.5-5.1)
[2017-09-07] MEDS: LEVOTHYROXINE SODIUM 88 MCG TAB PO SCH (06:02)
[2017-09-07] MEDS: INSULIN LISPRO 100 UNIT/1 ML 3ML VIAL SQ SCH ×2 (07:30→11:30)
[2017-09-07 08:00] VITALS: BP 148/69
--- NOTE | 2017-09-07 09:06 | Diagnostic Imaging Report ---
History: Neurological assessment Comparison studies: None Technique: Sagittal T2; axial DWI, FLAIR, MPGR, T1, Coronal FLAIR. Intravenous contrast: None Findings: Scalp: Right parietal ventricular shunt with its tip in the ipsilateral atria . No masses . Bone marrow: Normal in signal intensity. Extra-axial: No masses, no fluid collections. Brain sulci: Mildly prominent. Ventricles: Moderately prominent . . Parenchyma: Scattered small T2/flair hyperintensities of the periventricular and deep white matter. Mild subependymal T2 hyperintensities No masses, hemorrhage, acute or chronic vascular insults. Suprasellar region: No abnormalities. Craniocervical junction: No abnormalities. Patent foramen magnum. No Chiari one malformation. Vessels: Normal flow-voids in the arteries and sinuses. Mild fluid intensity signal at the mastoid air cells. IMPRESSION: 1. No acute abnormalities. 2. Moderate ventriculomegaly out of proportion for the widening of the subarachnoid space, concerning for normal pressure hydrocephalus. Right parietal ventricular shunt catheter. 3. Mild chronic microvascular ischemic changes of the white matter. Signed by: DR Gerardo Amin M.D. on 09/07/2017 9:02 AM
[2017-09-07] MEDS: AMLODIPINE BESYLATE 10 MG TAB PO SCH (09:22)
[2017-09-07] MEDS: METOPROLOL TARTRATE 25 MG TAB PO SCH (09:22)
--- NOTE | 2017-09-07 09:24 | Consultation ---
DATE OF CONSULTATION: September 07, 2017, at about 8:30 in the morning. NEUROLOGICAL CONSULTATION This is a patient of Dr. Chapman. REASON FOR CONSULTATION: Normal-pressure hydrocephalus. This is a 76-year-old male who was admitted to [facility] with a history of dysuria and gross hematuria. He is being evaluated by a urologist. Reason for consultation is because the patient had ventriculoperitoneal shunt last December 2016. At that time, the reason for the shunt was because he has the triad of gait impairment, urinary incontinence, and short-term memory loss. Apparently after the shunt, the patient improved his gait and improved his memory, apparently good results of the shunt. PAST HISTORY 1. Hypertension. 2. Diabetes mellitus. 3. Hyperlipidemia. 4. Hypothyroidism. 5. Coronary artery disease. 6. Normal-pressure hydrocephalus post ventriculoperitoneal shunt. SURGICAL HISTORY: He had some coronary stents, amputation of the left toe and ventriculoperitoneal shunt. ALLERGIES: NONE KNOWN. FAMILY HISTORY: Noncontributory. SOCIAL HISTORY: He does not smoke, and he does not drink. He lives alone. REVIEW OF SYSTEMS: All 12 steps negative. GENERAL PHYSICAL EXAMINATION VITAL SIGNS: Blood pressure today 147/64, pulse 72, temperature 96.2. LUNGS: Clear to auscultation. HEART: Regular sinus rhythm. No murmur. ABDOMEN: Moderately obese. No tenderness. MUSCULOSKELETAL: Lower extremities have no edema, no cyanosis, no clubbing. NEUROLOGIC EXAMINATION MENTAL STATUS: The patient is alert. He is comfortable and cooperative. His speech is clear. He knows he is in the hospital. He is oriented times 3. He knows the Presidents. He does not have any hallucinations. No confabulation. He responds appropriately. CRANIAL NERVES: Pupils are both equal and reactive. The extraocular movements are full. Visual collins are normal. No facial weakness. Tongue protrudes in the midline. MOTOR POWER: The patient is able to elevate both arms and legs against gravity without any difficulty. No evidence of weakness. DEEP TENDON REFLEXES: Triceps, biceps and radials are 1+. Knee jerks and ankle jerks absent bilaterally. Vibration sense decreased up to the ankles. SENSORY: Pinprick shows hypoesthesia in a stocking distribution up to the ankles. COORDINATION: [id number]: Very mild unsteadiness bilaterally. HEAD: Normocephalic. NECK: Supple. Carotid pulsations are present bilaterally. There are no bruits. GAIT: Deferred. IMPRESSION 1. Status post ventriculoperitoneal shunt. Symptoms of gait and memory problems have improved since the ventriculoperitoneal shunt. The ventriculoperitoneal shunt is working properly. 2. Hematuria. 3. Hypertension. 4. Diabetes mellitus, type 2. No neurologic workup is necessary at the present time. Job#: [id number]
[2017-09-07 11:39] VITALS: BP 148/69
[2017-09-08] MEDS ORDERED: GLIMEPIRIDE 2 MG TAB PO SCH (08:00)
--- NOTE | 2017-09-08 11:13 | Pulmonary Function Test ---
DATE OF STUDY: September 07, [address] Warren. Restrictive spirometry but effort was suboptimal. Forced vital capacity 2.35 L, 59% of predicted. FEV1 2.07 L, 72%. FEV1/FVC ratio 88%. FEF25/75 112%. Suboptimal effort. Restrictive pattern. Job#: [id number] RI
--- NOTE | 2017-09-16 12:42 | Discharge Summary ---
The patient is discharged to [facility] under the care of Dr. Abrams. The patient is admitted with gross hematuria. He has a history of urinary frequency, history of normal pressure hydrocephalus requiring CUSTOM SKI MAKER shunt in 2017, history of hypertension, diabetes, hyperlipidemia, hypothyroidism, coronary disease. He has had a history of amputation to the left great toe, CUSTOM SKI MAKER shunt, coronary stents. He is a nonsmoker. Seen by Dr. Bay who felt the shunt was working adequately. He was seen by Dr. Morrison for cardiac clearance because he has a coronary stent. He was cleared and underwent cystoscopy and TURP. He was also found to have a left inguinal hernia. He underwent cystoscopy and retrograde pyelogram. There is no evidence of tumor. Pathology of the prostate revealed chronic inflammation. He improved and his Loya catheter was removed, and he is discharged to the [facility] for continued care. He lives alone and required further rehabilitation. Creatinine was somewhat elevated at 1.28. Anemia apparently of chronic disease with hemoglobin 9.6. He was discharged on amlodipine 10 mg, Plavix 75, sliding scale insulin, Levoxyl 88, Crestor 10, pioglitazone 45 mg daily. He is to follow up with Dr. Goff in one month. Suggest that Plavix be held until cleared by the urologist per his recommendations. There was no evidence of further hematuria at the time of discharge. CHRISTEL SOUTH MD Job#: [id number] cc:JEANETTE GOFF MD cc:ROOSEVELT MORRISON MD cc:JENNIFER ABRAMS MD
--- NOTE | 2017-11-02 18:09 | Operative Report ---
DATE OF PROCEDURE: August 31, 2017 PREOPERATIVE DIAGNOSES 1. Gross hematuria. 2. Clot retention. OPERATIONS PERFORMED 1. Cystourethroscopy with extensive evacuation of severe clot retention (separate procedure performed for the clot retention). 2. Cystourethroscopy with bilateral ureteral catheterization and retrograde ureteropyelography (separate procedure performed for the gross hematuria). 3. Interpretation of retrograde ureteropyelography. 4. Supervision of fluoroscopy, no radiologist present. ANESTHESIA: General. COMPLICATIONS: None. CLINICAL SUMMARY: Kurt Renee is a 76-year-old man who presented with severe gross hematuria and clot retention. This retention has failed management on the sweet and the patient is therefore brought for the above procedures. She is aware of the risks of bleeding, infection, injury to adjacent structures, and need for additional procedures and elected to proceed. OPERATIVE PROCEDURE IN DETAIL: Informed consent was verified. Kurt Renee was properly identified, taken to the operating room, placed on the cystoscopy table in supine position. Anesthesia was uneventfully begun. Patient was then carefully and gently re-positioned in dorsal lithotomy position with all pressure points well padded. His genitalia were prepared and draped in the usual sterile fashion. The 22.5-Maori cystoscope sheath with a visual obturator in place was atraumatically inserted in patient's urethra. It was guided down the relatively unremarkable urethra through the normal sphincteric region, through the prostate bed, which was significant for severe trilobar prostatic hypertrophy with friable prostatic mucosa and multiple blood clots into the patient's bladder, which was filled with blood clots. We utilized the [place] for Autism evacuator to assist us in evacuating all the blood clots on to this bladder. Once we evacuated all the clots, there was no obvious underlying bladder tumor. A ureteral catheter was used to cannulate each ureter and retrograde ureteropyelography performed. Interpretation of retrograde ureteropyelography: Contrast was instilled in retrograde fashion bilaterally. There were no tumors. There were no stones. There were no diverticula. Unobstructed drainage was observed bilaterally fluoroscopically. There were no suspicious mucosal lesions. The patient's bladder was then drained. Cystoscope was withdrawn. Loya catheter was placed. Digital rectal examination revealed a greater than 50 g prostate, that is smooth and non-fluctuant without any nodules. The patient was then uneventfully reversed from anesthesia and taken to recovery room in stable condition. There were no complications to the procedure. He tolerated the procedure well. Explicit postoperative instructions were given and we will plan on returning the patient back to the operating room for transurethral resection of the prostate in 3 days. Job#: [id number] CY
--- NOTE | 2017-11-02 19:10 | Operative Report ---
DATE OF PROCEDURE: September 03, 2017 PREOPERATIVE DIAGNOSIS: Obstructive benign prostatic hypertrophy. POSTOPERATIVE DIAGNOSIS: Obstructive benign prostatic hypertrophy. PROCEDURE PERFORMED: Staged cystourethroscopy with transurethral resection of the prostate. ANESTHESIA: General. COMPLICATIONS: None. CLINICAL SUMMARY: Please refer to the hospital chart and previous dictations. OPERATIVE PROCEDURE IN DETAIL: Informed consent was verified. Kurt Renee properly identified, taken to the operating room, placed on the cystoscopy table in supine position. Anesthesia was uneventfully begun. The patient was then carefully and gently repositioned in the dorsal lithotomy position with all pressure points well padded. His genitalia were prepared and draped in the usual sterile fashion. The 22.5-Icelandic cystoscope sheath with a visual obturator in place was atraumatically inserted in the patient's urethra. It was guided down the unremarkable urethra to the prostate bed where lobar prostatic hypertrophy was encountered. We utilized the plasma band as we first resected the median lobe down to the surgical capsule. We then worked on bladder lobes from the bladder neck too, but never the past the verumontanum. Excellent hemostasis was achieved with pinpoint electrocautery. We evacuated all prostate chips and this was verified endoscopically. The resectoscope was then withdrawn. A Loya catheter was placed, was placed on continuous bladder irrigation. The patient was uneventfully reversed from anesthesia and taken to recovery room in stable condition. There were no complications during the procedure. He tolerated the procedure well. Plans will be to proceed with routine postoperative care and of course long-term urological followup. Job#: [id number] CY
== END 2017-09-07 14:18 | DRG 713 ==
LOC: ER 18:35 → MED/SURG2 08-30 01:39 → ACU 09-03 10:38 → MED/SURG2 09-03 10:39
PROVIDERS: ADMIT Internal Medicine; ATTEND Internal Medicine
PROC: 0T778ZZ Dilation of Left Ureter, Via Natural or Artificial Opening Endoscopic (ICD-10-PCS; principal; 2017-08-30)
PROC: 0TCB8ZZ Extirpation of Matter from Bladder, Via Natural or Artificial Opening Endoscopic (ICD-10-PCS; 2017-08-31)
PROC: 0T788ZZ Dilation of Bilateral Ureters, Via Natural or Artificial Opening Endoscopic (ICD-10-PCS; 2017-08-31)
PROC: BT141ZZ Fluoroscopy of Kidneys, Ureters and Bladder using Low Osmolar Contrast (ICD-10-PCS; 2017-08-31)
PROC: 0VT08ZZ Resection of Prostate, Via Natural or Artificial Opening Endoscopic (ICD-10-PCS; 2017-09-03)
PROC: 0TJB8ZZ Inspection of Bladder, Via Natural or Artificial Opening Endoscopic (ICD-10-PCS; 2017-09-03)
DX: N40.1 Benign prostatic hyperplasia with lower urinary tract symptoms (principal); G91.2 (Idiopathic) normal pressure hydrocephalus; N13.8 Other obstructive and reflux uropathy; R31.0 Gross hematuria; R35.1 Nocturia; E66.01 Morbid (severe) obesity due to excess calories; Z68.35 Body mass index [BMI] 35.0-35.9, adult; N47.2 Paraphimosis; N28.1 Cyst of kidney, acquired; K40.90 Unilateral inguinal hernia, without obstruction or gangrene, not specified as recurrent; I25.10 Atherosclerotic heart disease of native coronary artery without angina pectoris; Z95.5 Presence of coronary angioplasty implant and graft; Z98.2 Presence of cerebrospinal fluid drainage device; E11.51 Type 2 diabetes mellitus with diabetic peripheral angiopathy without gangrene; Z79.4 Long term (current) use of insulin; R26.81 Unsteadiness on feet; R39.11 Hesitancy of micturition; E03.9 Hypothyroidism, unspecified; Z89.412 Acquired absence of left great toe; D63.8 Anemia in other chronic diseases classified elsewhere; R33.9 Retention of urine, unspecified; E11.22 Type 2 diabetes mellitus with diabetic chronic kidney disease; I12.9 Hypertensive chronic kidney disease with stage 1 through stage 4 chronic kidney disease, or unspecified chronic kidney disease; N18.9 Chronic kidney disease, unspecified
CPT/HCPCS: 36415; 51700; 51703; 70551; 71046; 74176; 74420; 78582; 80048; 80053; 81001; 82948; 83540; 83605; 84466; 85025; 85610; 85730; 87086; 88305; 93005; 93306; 94010; 97139; 99284; A9540; A9558; J0696; J1100; J2001; J2250; J2270; J2405; J7030

== ENCOUNTER 2018-04-01 15:26 | Emergency (ER) | payer MEDICARE ==
[~2018-04-01] VITALS: Ht 175.3 cm; Wt 96.2 kg
--- OUTSIDE RECORDS SUMMARY | 2018-04-01 15:30 | XMS REPORT | Clinical Summary ---
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 Fibrillation Active atorvastatin (LIPITOR) 40 Take 40 mg by 0 MG tabletIndications: mouth nightly hyperlipidemia . Active clopidogrel (PLAVIX) 75 Take 75 mg by 0 mg tabletIndications: mouth daily. Atrial Fibrillation Active docusate sodium (COLACE) Take 100 mg 0 100 MG capsule by mouth 2 (two) times daily as needed for Constipation. Active donepezil (ARICEPT) 5 MG Take 5 mg by 0 tabletIndications: Mild mouth to Moderate Alzheimer's nightly. Type Dementia Active ferrous sulfate 325 (65 Take 325 mg 0 FE) MG tabletIndications: by mouth 2 Iron Deficiency Anemia (two) times daily. Active levothyroxine (SYNTHROID, Take 88 mcg 0 LEVOTHROID) 88 MCG by mouth tabletIndications: Every morning hypothyroidism on an empty stomach. Active memantine (NAMENDA) 5 MG Take 5 mg by 0 tabletIndications: mouth daily. Moderate to Severe Alzheimer's Type Dementia Active insulin aspart U-100 Inject 0 (NOVOLOG) 100 unit/mL subcutaneousl InPnIndications: type 2 y 4 (four) diabetes mellitus times daily before meals and nightly. Active traZODone (DESYREL) 50 MG Take 50 mg by 0 tabletIndications: mouth insomnia associated with nightly. depression Active ondansetron (ZOFRAN) 4 MG Take 4 mg by 0 tabletIndications: mouth every 4 Nausea/Vomiting (four) hours as needed for Nausea. 04/21/2018 Active metoprolol (LOPRESSOR) 25 Take 2 120 tablet 0 12/28/201 MG tabletIndications: tablets (50 8 hypertension mg total) by mouth 2 (two) times daily for 30 days. 04/22/2018 Active furosemide (LASIX) 40 MG Take 1 tablet 30 tablet 0 tablet (40 mg total) 8 by mouth daily for 30 days. 03/17/2019 Active acetaminophen (TYLENOL) Take 2 30 tablet 0 325 MG tablet tablets (650 8 mg total) by mouth every 6 (six) hours as needed for up to 360 days. 04/21/2018 Active amLODIPine (NORVASC) 10 Take 1 tablet 30 tablet 0 MG tabletIndications: (10 mg total) 8 hypertension by mouth daily for 30 days. Active insulin glargine (LANTUS) Inject 25 10 mL 0 100 unit/mL Units 8 injectionIndications: subcutaneousl type 2 diabetes mellitus y nightly Use as directed . 03/22/2018 Discontinued insulin glargine (LANTUS) Inject 35 0 100 unit/mL Units injectionIndications: subcutaneousl type 2 diabetes mellitus y nightly Use as directed . 03/22/2018 Discontinued metoprolol (LOPRESSOR) 25 Take 12.5 mg 0 MG tabletIndications: by mouth 2 hypertension (two) times daily. 03/22/2018 Discontinued nitroglycerin (NITROSTAT) Place 0.4 mg 0 0.4 MG SL under the tabletIndications: Angina tongue every 5 (five) minutes as needed for Chest pain Put 1 pill under tongue every 5min as needed for chest pain.No more than 3 doses in 15min.Call 911 if pain is unrelieved 5min after 1st dose . 03/22/2018 Discontinued amLODIPine (NORVASC) 5 MG Take 5 mg by 0 tabletIndications: mouth daily. hypertension 03/22/2018 Discontinued pioglitazone (ACTOS) 45 Take 45 mg by 0 MG tabletIndications: mouth daily. type 2 diabetes mellitus Active Problems Problem Noted Date S/P CABG (coronary artery bypass graft) 03/16/2018 Vasogenic shock 03/16/2018 Anemia 03/13/2018 TJ (acute kidney injury) 03/13/2018 CAD (coronary artery disease) 03/11/2018 Acute blood loss anemia Respiratory insufficiency Encounters Care Team Description Date Type Specialty Yovani Archer MD [facility]PASS,[place] CORONARY CIARRA 03/15/2018 Surgery Jarod Sharma, SERGEY 03/15/2018 Anesthesia Event 03/12/2018 Travel Yovani Archer MD Coronary artery disease involving nome heart without angina pectoris, unspecified vessel or lesion type; Hypertension, unspecified type; TJ (acute kidney injury) (HCC); Type 2 diabetes mellitus with complication, with long-term current use of insulin (HCC) 03/11/2018 Hospital Cardiology - Encounter 03/22/2018 Katelynn Franks RN Coronary artery disease involving nome coronary artery of nome heart without angina pectoris (Primary Dx) 03/11/2018 Orders Only Cardiology after 03/31/2017 Social History Date Tobacco Use Types Packs/Day Years Used Never Smoker Smokeless Tobacco: Never Used Sex Assigned at Date Recorded Not on file Industry Job Start Date Occupation Not on file Not on file Not on file Travel End Travel History Travel Start No recent travel history available. Last Filed Vital Signs Time Taken Vital Sign Reading 03/22/2018 7:48 AM [facility] Blood Pressure 141/65 03/22/2018 7:48 AM [facility]GE [facility] Pulse 81 03/22/2018 7:48 AM [facility]GE [facility] Temperature 37.1 C (98.7 F) 03/22/2018 7:48 AM [facility]IDGE [facility] Respiratory Rate 17 03/22/2018 7:48 AM [facility]GE [facility] Oxygen Saturation 96% 03/16/2018 5:30 AM [facility]TRIDGE [facility]GER Inhaled Oxygen 40% Concentration 03/21/2018 8:32 AM [facility]GE [facility] Weight 97.8 kg (215 lb 9.8 oz) 03/12/2018 8:35 AM [facility]TRIDGE [facility]AU[facility] Height 175.3 cm (5' 9") 03/21/2018 8:32 AM [facility]TRIDGE [facility] Body Mass Index 31.84 Plan of Treatment Not on file Implants Device Identifier Shelf Expiration Date Model / Serial / Lot Implanted Type Area Manufactur er 12/23/[id number] / / [id number] Sternal Zipfix Ndl Strl Cardiovasc N/A: Chest SYNTHES:SY [id number] - [id number] ular Wall [facility] Implanted: Qty: 2 on 03/15/2018 by Yovani Archer MD Procedures Comments Procedure Name Priority Date/Time Associated Diagnosis POCT-GLUCOSE METER Routine 03/22/2018 7:50 AM [facility]TRIDGE [facility]GER POCT-GLUCOSE METER Routine 03/21/2018 9:04 PM [facility]GE [facility]GER POCT-GLUCOSE METER Routine 03/21/2018 5:06 PM [facility]GE [facility]GER POCT-GLUCOSE METER Routine 03/21/2018 12:13 PM [facility]GE [facility]GER POCT-GLUCOSE METER Routine 03/21/2018 8:08 AM CARTR[facility]GE GAUGER CBC W/PLT COUNT & AUTO Routine 03/21/2018 DIFFERENTIAL 6:29 AM [facility]GE [facility]GER MAGNESIUM Routine 03/21/2018 6:29 AM CARTR[facility]GE GAUGER CBC W/PLT COUNT & AUTO Routine 03/21/2018 DIFFERENTIAL 6:29 AM [facility]TR[facility]GE GAUGER BASIC METABOLIC PANEL (7) Routine 03/21/2018 6:29 AM CARTRIDGE GAUGER XR CHEST 1 VIEW Routine 03/21/2018 PORTABLE/BEDSIDE 6:14 AM [facility]TR[facility]GE [facility]AUGER POCT-GLUCOSE METER Routine 03/20/2018 9:31 PM CARTR[facility]GE [facility]GER ECHOCARDIOGRAM REPORT - 03/20/2018 SCAN 5:11 PM [facility]GE [facility]GER POCT-GLUCOSE METER Routine 03/20/2018 4:02 PM CARTRIDGE GAUGER 2D ECHO W/ DOPPLER Routine 03/20/2018 (CW/PW/COLOR) 2:11 PM CARTRIDGE GAUGER XR CHEST 1 VIEW Routine 03/20/2018 PORTABLE/BEDSIDE 8:23 AM CARTRIDGE [facility]AUGER POCT-GLUCOSE METER Routine 03/20/2018 8:13 AM CARTR[facility]GE GAUGER CBC W/PLT COUNT & AUTO Routine 03/20/2018 DIFFERENTIAL 4:59 AM [facility]GE G[facility]GER MAGNESIUM Routine 03/20/2018 4:59 AM CARTR[facility]GE GAUGER CBC W/PLT COUNT & AUTO Routine 03/20/2018 DIFFERENTIAL 4:59 AM [facility]TR[facility]GE GAUGER BASIC METABOLIC PANEL (7) Routine 03/20/2018 4:59 AM CARTR[facility]GE GAUGER POCT-GLUCOSE METER Routine 03/19/2018 10:05 PM CARTR[facility]GE GAUGER XR CHEST 1 VIEW Routine 03/19/2018 PORTABLE/BEDSIDE 7:52 PM CARTR[facility]GE GAUGER POCT-GLUCOSE METER Routine 03/19/2018 5:21 PM CARTR[facility]GE GAUGER POCT-GLUCOSE METER Routine 03/19/2018 1:10 PM CAR[facility]GE GAUGER POCT-GLUCOSE METER Routine 03/19/2018 8:20 AM CARTR[facility]GE GAUGER CBC W/PLT COUNT & AUTO Routine 03/19/2018 DIFFERENTIAL 4:57 AM CARTR[facility]GE GAUGER MAGNESIUM Routine 03/19/2018 4:57 AM CARTR[facility]GE GAUGER CBC W/PLT COUNT & AUTO Routine 03/19/2018 DIFFERENTIAL 4:57 AM [facility]GE GAUGER BASIC METABOLIC PANEL (7) Routine 03/19/2018 4:57 AM CARTRIDGE [facility]AUGER ECG 12-LEAD Routine 03/19/2018 4:33 AM CARTRIDGE GAUGER Procedure Note - Interface, External Ris In - 03/19/2018 4:49 AM CARTRIDGE GAUGER Ventricula r Rate 93 BPM Atrial Rate 93 BPM P-R Interval 142 ms QRS Duration 106 ms Q-T Interval 404 ms QTC Calculatio n(Bazett) 502 ms P [place] 69 degrees R [place] 68 degrees T [place] 5 degrees Normal sinus rhythm Possible Left atrial enlargemen t Incomplete right bundle branch block Possible Inferior infarct , new Anterior infarct , possibly acute Prolonged QT ACUTE [place] / STEMI Abnormal ECG When compared with ECG of 8 21:06, Anterior infarct is now Present Acute Inferior infarct is now Present ECG 12-LEAD Routine 03/19/2018 4:33 AM CARTRIDGE GAUGER POCT-GLUCOSE METER Routine 03/18/2018 9:28 PM CARTRIDGE GAUGER TRANSFUSION SERVICE 03/18/2018 REPORT - SCAN 6:00 PM [facility]TR[facility]GE [facility]AUGER POCT-GLUCOSE METER Routine 03/18/2018 6:00 PM CARTRIDGE GAUGER NM MUGA CARD IMAGING EQ Routine 03/18/2018 REST WM EF 3:30 PM CARTRIDGE GAUGER POCT-GLUCOSE METER Routine 03/18/2018 3:27 PM CARTRIDGE GAUGER POCT-GLUCOSE METER Routine 03/18/2018 12:31 PM CARTRIDGE GAUGER POCT-GLUCOSE METER Routine 03/18/2018 7:38 AM CARTRIDGE GAUGER CBC W/PLT COUNT & AUTO Routine 03/18/2018 DIFFERENTIAL 4:45 AM CAR[facility]GE G[facility]GER MAGNESIUM Routine 03/18/2018 4:45 AM CARTRIDGE GAUGER CBC W/PLT COUNT & AUTO Routine 03/18/2018 DIFFERENTIAL 4:45 AM [facility]TRIDGE GAUGER BASIC METABOLIC PANEL (7) Routine 03/18/2018 4:45 AM CARTRIDGE GAUGER PREPARE LEUKO-REDUCED RBC Routine 03/17/2018 11:54 PM [facility]TR[facility]GE G[facility]GER POCT-GLUCOSE METER Routine 03/17/2018 10:50 PM CAR[facility]GE [facility]GER TRANSFUSION SERVICE 03/17/2018 REPORT - SCAN 6:01 PM [facility]GE [facility] POCT-GLUCOSE METER Routine 03/17/2018 5:16 PM [facility]GE [facility]GER POCT-GLUCOSE METER Routine 03/17/2018 12:24 PM CARTR[facility]GE [facility]GER POCT-GLUCOSE METER Routine 03/17/2018 9:01 AM [facility]GE [facility] XR CHEST 1 VIEW Routine 03/17/2018 PORTABLE/BEDSIDE 6:21 AM [facility]GE [facility]GER POCT-GLUCOSE METER Routine 03/17/2018 4:22 AM [facility]TR[facility]GE [facility]GER BLOOD GAS, ARTERIAL Routine 03/17/2018 3:12 AM CARTR[facility]GE [facility]GER CBC W/PLT COUNT & AUTO Routine 03/17/2018 DIFFERENTIAL 3:10 AM [facility]GE [facility]GER MAGNESIUM Routine 03/17/2018 3:10 AM CAR[facility]GE [facility] CBC W/PLT COUNT & AUTO Routine 03/17/2018 DIFFERENTIAL 3:10 AM [facility]GE [facility]GER LACTIC ACID, ARTERIAL, Routine 03/17/2018 WHOLE BLOOD 3:10 AM CAR[facility]GE [facility]GER BASIC METABOLIC PANEL (7) Routine 03/17/2018 3:10 AM [facility]GE [facility]GER PHOSPHORUS Routine 03/17/2018 3:10 AM CAR[facility]GE GAUGER POCT-GLUCOSE METER Routine 03/17/2018 1:49 AM CARTR[facility]GE G[facility]GER PREPARE LEUKO-REDUCED RBC Routine 03/16/2018 11:55 PM CARTRIDGE GAUGER POCT-GLUCOSE METER Routine 03/16/2018 10:50 PM CARTRIDGE GAUGER TRANSFUSION SERVICE 03/16/2018 REPORT - SCAN 6:03 PM CARTR[facility]GE G[facility]GER POCT-GLUCOSE METER Routine 03/16/2018 4:03 PM CARTR[facility]GE GAUGER POCT-GLUCOSE METER Routine 03/16/2018 2:00 PM CAR[facility]GE GAUGER POCT-GLUCOSE METER Routine 03/16/2018 1:16 PM CARTRIDGE GAUGER HGB/HCT (H&H) - STAT LAB STAT 03/16/2018 11:01 AM [facility]GE [facility]GER GLUCOSE-STAT LAB STAT 03/16/2018 11:01 AM CARTRIDGE GAUGER POTASSIUM-STAT LAB STAT 03/16/2018 11:01 AM CARTRIDGE GAUGER SODIUM NA-STAT LAB STAT 03/16/2018 11:01 AM CARTR[facility]GE [facility]AUGER BLOOD GAS, ARTERIAL STAT 03/16/2018 11:01 AM CARTR[facility]GE GAUGER LACTIC ACID, ARTERIAL, STAT 03/16/2018 WHOLE BLOOD 11:01 AM CARTRIDGE GAUGER RRL CRITICAL LABS STAT 03/16/2018 (ABG,NA,K,H&H,GLUCOSE) 11:01 AM CARTR[facility]GE G[facility]GER POCT-GLUCOSE METER Routine 03/16/2018 8:12 AM CARTRIDGE GAUGER LACTIC ACID, VENOUS, STAT 03/16/2018 WHOLE BLOOD 7:59 AM CARTR[facility]GE [facility]GER CBC W/PLT COUNT & AUTO Routine 03/16/2018 DIFFERENTIAL 6:51 AM CAR[facility]GE [facility]GER TROPONIN I Routine 03/16/2018 6:51 AM CAR[facility]GE GAUGER MAGNESIUM Routine 03/16/2018 6:51 AM CARTRIDGE GAUGER BASIC METABOLIC PANEL (7) Routine 03/16/2018 6:51 AM CARTRIDGE GAUGER CBC W/PLT COUNT & AUTO Routine 03/16/2018 DIFFERENTIAL 6:51 AM CARTR[facility]GE G[facility]GER POCT-GLUCOSE METER Routine 03/16/2018 6:49 AM CARTR[facility]GE G[facility]GER POCT-GLUCOSE METER Routine 03/16/2018 5:45 AM [facility]TR[facility]GE [facility]GER BLOOD GAS, ARTERIAL Routine 03/16/2018 4:45 AM CARTRIDGE GAUGER XR CHEST 1 VIEW Routine 03/16/2018 PORTABLE/BEDSIDE 4:04 AM [facility]GE [facility]GER POCT-GLUCOSE METER Routine 03/16/2018 3:56 AM CARTR[facility]GE G[facility]GER CBC W/PLT COUNT & AUTO STAT 03/16/2018 DIFFERENTIAL 3:06 AM [facility] OXYGEN SATURATION, Routine 03/16/2018 MEASURED 3:06 AM CAR[facility]GE G[facility] CBC W/PLT COUNT & AUTO STAT 03/16/2018 DIFFERENTIAL 3:06 AM CAR[facility]GE [facility] PHOSPHORUS Routine 03/16/2018 3:06 AM CARTRIDGE GAUGER MAGNESIUM Routine 03/16/2018 3:06 AM CARTRIDGE GAUGER BASIC METABOLIC PANEL (7) Routine 03/16/2018 3:06 AM CARTRIDGE GAUGER BLOOD GAS, ARTERIAL Routine 03/16/2018 3:05 AM CARTRIDGE GAUGER LACTIC ACID, ARTERIAL, Routine 03/16/2018 WHOLE BLOOD 3:05 AM CARTRIDGE GAUGER TRANSFUSE LEUKO-REDUCED Routine 03/16/2018 RED BLOOD CELLS 3:01 AM CAR[facility]GE [facility]GER POCT-GLUCOSE METER Routine 03/16/2018 2:28 AM CARTRIDGE GAUGER TRANSFUSE LEUKO-REDUCED Routine 03/16/2018 RED BLOOD CELLS 2:19 AM CARTRIDGE GAUGER LACTIC ACID, VENOUS, STAT 03/16/2018 WHOLE BLOOD 2:01 AM CARTRIDGE GAUGER HGB/HCT (H&H) - STAT LAB Routine 03/16/2018 1:31 AM [facility]GE [facility]GER GLUCOSE-STAT LAB Routine 03/16/2018 1:31 AM CARTRIDGE GAUGER POTASSIUM-STAT LAB Routine 03/16/2018 1:31 AM CARTR[facility]GE GAUGER SODIUM NA-STAT LAB Routine 03/16/2018 1:31 AM CARTRIDGE GAUGER BLOOD GAS, ARTERIAL Routine 03/16/2018 1:31 AM CARTRIDGE GAUGER RRL CRITICAL LABS Routine 03/16/2018 (ABG,NA,K,H&H,GLUCOSE) 1:31 AM CARTRIDGE GAUGER POCT-GLUCOSE METER Routine 03/16/2018 1:30 AM CARTRIDGE GAUGER POCT-GLUCOSE METER Routine 03/15/2018 11:30 PM CARTRIDGE GAUGER POTASSIUM Routine 03/15/2018 11:13 PM CARTRIDGE GAUGER TROPONIN I Routine 03/15/2018 11:13 PM CARTRIDGE GAUGER HGB/HCT (H&H) - STAT LAB STAT 03/15/2018 11:10 PM [facility]GE [facility]GER GLUCOSE-STAT LAB STAT 03/15/2018 11:10 PM CAR[facility]GE G[facility]GER POTASSIUM-STAT LAB STAT 03/15/2018 11:10 PM [facility]GE G[facility]GER SODIUM NA-STAT LAB STAT 03/15/2018 11:10 PM [facility]GE [facility]GER BLOOD GAS, ARTERIAL STAT 03/15/2018 11:10 PM CARTRIDGE GAU[facility] RRL CRITICAL LABS STAT 03/15/2018 (ABG,NA,K,H&H,GLUCOSE) 11:10 PM [facility]GER MAGNESIUM Routine 03/15/2018 8:17 PM [facility]GE G[facility]GER POTASSIUM STAT 03/15/2018 8:17 PM CAR[facility]GE [facility]GER GLUCOSE STAT 03/15/2018 8:17 PM [facility]GE [facility]GER POCT-GLUCOSE METER Routine 03/15/2018 8:13 PM CAR[facility]GE [facility]GER OXYGEN SATURATION, Routine 03/15/2018 MEASURED 8:06 PM CARTR[facility]GE [facility]AUGER HGB/HCT (H&H) - STAT LAB STAT 03/15/2018 8:06 PM [facility]GE [facility] GLUCOSE-STAT LAB STAT 03/15/2018 8:06 PM CARTRIDGE GAUGER POTASSIUM-STAT LAB STAT 03/15/2018 8:06 PM CARTR[facility]GE GAUGER SODIUM NA-STAT LAB STAT 03/15/2018 8:06 PM CARTR[facility]GE G[facility]GER BLOOD GAS, ARTERIAL STAT 03/15/2018 8:06 PM CARTRIDGE GAUGER RRL CRITICAL LABS STAT 03/15/2018 (ABG,NA,K,H&H,GLUCOSE) 8:06 PM CARTR[facility]GE G[facility]GER CBC W/PLT COUNT & AUTO Routine 03/15/2018 DIFFERENTIAL 7:49 PM [facility]GE [facility]GER CBC W/PLT COUNT & AUTO Routine 03/15/2018 DIFFERENTIAL 7:49 PM [facility] OXYGEN SATURATION, STAT 03/15/2018 MEASURED 6:17 PM CARTRIDGE GAUGER (CELLAVISION MANUAL DIFF) Routine 03/15/2018 6:16 PM [facility]GE GAUGER CBC W/PLT COUNT & AUTO Routine 03/15/2018 DIFFERENTIAL 6:16 PM [facility]GE [facility]GER CBC W/PLT COUNT & AUTO Routine 03/15/2018 DIFFERENTIAL 6:16 PM [facility]GER PHOSPHORUS Routine 03/15/2018 6:16 PM [facility]GER MAGNESIUM Routine 03/15/2018 6:16 PM [facility]GE G[facility]GER TROPONIN I Routine 03/15/2018 6:16 PM [facility] BLOOD GAS, ARTERIAL STAT 03/15/2018 6:16 PM CARTR[facility]GE GAUGER PT/APTT STAT 03/15/2018 6:16 PM [facility]GE G[facility]GER FIBRINOGEN STAT 03/15/2018 6:16 PM [facility] BASIC METABOLIC PANEL (7) STAT 03/15/2018 6:16 PM CARTRIDGE GAUGER CALCIUM, IONIZED STAT 03/15/2018 6:16 PM [facility]GE G[facility]GER LACTIC ACID, ARTERIAL, STAT 03/15/2018 WHOLE BLOOD 6:16 PM CAR[facility]GE G[facility]GER TRANSFUSION SERVICE 03/15/2018 REPORT - SCAN 6:00 PM [facility] CBC W/PLT COUNT & AUTO STAT 03/15/2018 DIFFERENTIAL 4:37 PM [facility]GE [facility]AUGER CBC W/PLT COUNT & AUTO STAT 03/15/2018 DIFFERENTIAL 4:37 PM [facility]GER PHOSPHORUS STAT 03/15/2018 4:36 PM CAR[facility]GE GAUGER MAGNESIUM STAT 03/15/2018 4:36 PM [facility]GE G[facility]GER BASIC METABOLIC PANEL (7) STAT 03/15/2018 4:36 PM CARTRIDGE GAUGER XR CHEST 1 VIEW Routine 03/15/2018 PORTABLE/BEDSIDE 4:35 PM [facility]GE [facility]GER OXYGEN SATURATION, STAT 03/15/2018 MEASURED 4:29 PM CAR[facility]IDGE GAUGER BLOOD GAS, ARTERIAL STAT 03/15/2018 4:29 PM CARTRIDGE GAUGER PREPARE RBC STAT 03/15/2018 4:01 PM [facility]GE [facility]GER GLUCOSE-STAT LAB STAT 03/15/2018 3:20 PM CARTRIDGE GAUGER POTASSIUM-STAT LAB STAT 03/15/2018 3:20 PM CARTRIDGE GAUGER SODIUM NA-STAT LAB STAT 03/15/2018 3:20 PM CARTR[facility]GE GAUGER CALCIUM, IONIZED STAT 03/15/2018 3:20 PM CARTRIDGE GAUGER POCT-ACT Routine 03/15/2018 2:30 PM CARTRIDGE GAUGER HGB/HCT (H&H) - STAT LAB STAT 03/15/2018 2:29 PM [facility]TR[facility]GE [facility]AUGER GLUCOSE-STAT LAB STAT 03/15/2018 2:29 PM [facility]TR[facility]GE G[facility]GER POTASSIUM-STAT LAB STAT 03/15/2018 2:29 PM CARTRIDGE GAUGER SODIUM NA-STAT LAB STAT 03/15/2018 2:29 PM CARTRIDGE GAUGER BLOOD GAS, ARTERIAL STAT 03/15/2018 2:29 PM CARTRIDGE GAUGER CALCIUM, IONIZED STAT 03/15/2018 2:29 PM CARTRIDGE GAUGER RRL CRITICAL LABS STAT 03/15/2018 (ABG,NA,K,H&H,GLUCOSE) 2:29 PM CARTRIDGE GAUGER POCT-ACT Routine 03/15/2018 2:03 PM CARTRIDGE GAUGER POCT-ACT Routine 03/15/2018 1:26 PM CARTRIDGE GAUGER HGB/HCT (H&H) - STAT LAB STAT 03/15/2018 1:22 PM CARTRIDGE GAUGER GLUCOSE-STAT LAB STAT 03/15/2018 1:22 PM CARTRIDGE GAUGER POTASSIUM-STAT LAB STAT 03/15/2018 1:22 PM CARTRIDGE GAUGER SODIUM NA-STAT LAB STAT 03/15/2018 1:22 PM CARTRIDGE GAUGER BLOOD GAS, ARTERIAL STAT 03/15/2018 1:22 PM CARTRIDGE GAUGER RRL CRITICAL LABS STAT 03/15/2018 (ABG,NA,K,H&H,GLUCOSE) 1:22 PM CARTRIDGE GAUGER CALCIUM, IONIZED STAT 03/15/2018 1:22 PM CARTRIDGE GAUGER POCT-ACT Routine 03/15/2018 12:51 PM CARTRIDGE GAUGER HGB/HCT (H&H) - STAT LAB STAT 03/15/2018 12:47 PM [facility] GLUCOSE-STAT LAB STAT 03/15/2018 12:47 PM [facility] POTASSIUM-STAT LAB STAT 03/15/2018 12:47 PM [facility]GE G[facility]GER SODIUM NA-STAT LAB STAT 03/15/2018 12:47 PM [facility]GER BLOOD GAS, ARTERIAL STAT 03/15/2018 12:47 PM [facility] G[facility]GER CALCIUM, IONIZED STAT 03/15/2018 12:47 PM CARTRIDGE GAUGER RRL CRITICAL LABS STAT 03/15/2018 (ABG,NA,K,H&H,GLUCOSE) 12:47 PM CARTR[facility]GE G[facility]GER POCT-ACT Routine 03/15/2018 12:22 PM CARTRIDGE GAUGER HGB/HCT (H&H) - STAT LAB STAT 03/15/2018 11:50 AM CARTRIDGE [facility]GER GLUCOSE-STAT LAB STAT 03/15/2018 11:50 AM [facility]TR[facility]GE G[facility]GER POTASSIUM-STAT LAB STAT 03/15/2018 11:50 AM CARTRIDGE GAUGER SODIUM NA-STAT LAB STAT 03/15/2018 11:50 AM [facility]GE G[facility]GER BLOOD GAS, ARTERIAL STAT 03/15/2018 11:50 AM CARTRIDGE GAUGER CALCIUM, IONIZED STAT 03/15/2018 11:50 AM CARTRIDGE GAUGER RRL CRITICAL LABS STAT 03/15/2018 (ABG,NA,K,H&H,GLUCOSE) 11:50 AM CARTRIDGE GAUGER POCT-ACT Routine 03/15/2018 11:50 AM CARTRIDGE GAUGER POCT-ACT Routine 03/15/2018 11:13 AM CARTRIDGE GAUGER ECHOCARDIOGRAM REPORT - 03/15/2018 SCAN 10:20 AM CARTRIDGE GAUGER POCT-ACT Routine 03/15/2018 10:16 AM CARTRIDGE GAUGER HGB/HCT (H&H) - STAT LAB Routine 03/15/2018 10:15 AM CARTR[facility]GE G[facility]GER GLUCOSE-STAT LAB Routine 03/15/2018 10:15 AM [facility] G[facility]GER POTASSIUM-STAT LAB Routine 03/15/2018 10:15 AM CARTRIDGE GAUGER SODIUM NA-STAT LAB Routine 03/15/2018 10:15 AM [facility]GE G[facility]GER BLOOD GAS, ARTERIAL Routine 03/15/2018 10:15 AM [facility]GE G[facility]GER CALCIUM, IONIZED Routine 03/15/2018 10:15 AM CARTRIDGE G[facility]GER RRL CRITICAL LABS Routine 03/15/2018 (ABG,NA,K,H&H,GLUCOSE) 10:15 AM CARTRIDGE GAUGER ANESTHESIA PHILLIP Routine 03/15/2018 8:37 AM CARTRIDGE GAUGER HGB/HCT (H&H) - STAT LAB Routine 03/15/2018 7:48 AM [facility]GE G[facility]GER GLUCOSE-STAT LAB Routine 03/15/2018 7:48 AM CAR[facility]GE G[facility]GER POTASSIUM-STAT LAB Routine 03/15/2018 7:48 AM [facility] G[facility]GER SODIUM NA-STAT LAB Routine 03/15/2018 7:48 AM [facility]GE G[facility]GER BLOOD GAS, ARTERIAL Routine 03/15/2018 7:48 AM CARTRIDGE GAUGER RRL CRITICAL LABS Routine 03/15/2018 (ABG,NA,K,H&H,GLUCOSE) 7:48 AM CARTRIDGE GAUGER PHILLIP 03/15/2018 Disease of cardiovascular 7:30 AM CARTRIDGE GAUGER system Case Notes 4 HOURS ENDOSCOPIC HARVEST,VEIN 03/15/2018 Disease of cardiovascular 7:30 AM CARTRIDGE G[facility]GER system Case Notes 4 HOURS [place] CORONARY CIARRA 03/15/2018 Disease of cardiovascular 7:30 AM CARTRIDGE GAUGER system Case Notes 4 HOURS POCT-GLUCOSE METER Routine 03/15/2018 5:55 AM CARTRIDGE GAUGER CBC W/PLT COUNT & AUTO Routine 03/15/2018 DIFFERENTIAL 4:21 AM CARTRIDGE GAUGER MAGNESIUM Routine 03/15/2018 4:21 AM [facility]GE G[facility]GER BASIC METABOLIC PANEL (7) Routine 03/15/2018 4:21 AM CARTRIDGE GAUGER CBC W/PLT COUNT & AUTO Routine 03/15/2018 DIFFERENTIAL 4:21 AM CAR[facility]GE GAUGER RETICULOCYTE COUNT Routine 03/15/2018 4:21 AM [facility]GE G[facility]GER VITAMIN B12 AND FOLATE Routine 03/15/2018 4:21 AM CARTR[facility]GE G[facility]GER FERRITIN Routine 03/15/2018 4:21 AM CARTRIDGE GAUGER IRON, TIBC, % SAT. Routine 03/15/2018 (WITHOUT FERRITIN) 4:21 AM CARTR[facility]GE GAUGER LACTATE DEHYDROGENASE Routine 03/15/2018 (LDH) 4:21 AM CARTRIDGE GAUGER TYPE AND SCREEN, Routine 03/14/2018 AUTOMATED 9:53 PM CAR[facility]GE GAUGER POCT-GLUCOSE METER Routine 03/14/2018 9:11 PM [facility]TR[facility]GE G[facility]GER ECG 12-LEAD Routine 03/14/2018 9:06 PM CARTRIDGE GAUGER Procedure Note - Interface, External Ris In - 03/14/2018 9:13 PM CARTRIDGE GAUGER Ventricula r Rate 67 BPM Atrial Rate 67 BPM P-R Interval 158 ms QRS Duration 106 ms Q-T Interval 436 ms QTC Calculatio n(Bazett) 460 ms P [place] 57 degrees R [place] 53 degrees T [place] 92 degrees Normal sinus rhythm Possible Left atrial enlargemen t Incomplete right bundle branch block Nonspecifi c T wave abnormalit y Prolonged QT Abnormal ECG No previous ECGs available ECG 12-LEAD Routine 03/14/2018 9:06 PM CARTRIDGE GAUGER 2D ECHO W/ DOPPLER FILI 03/14/2018 (CW/PW/COLOR) 8:[address] BRAIN WITHOUT IV STAT 03/14/2018 CONTRAST 8:05 PM CARTRIDGE GAUGER CAROTID DOPPLER BILATERAL FILI 03/14/2018 7:30 PM CARTRIDGE GAUGER POCT-GLUCOSE METER Routine 03/14/2018 5:37 PM CARTRIDGE GAUGER ARTERIAL DOPPLER ARMS STAT 03/14/2018 BILATERAL 4:12 PM CARTRIDGE GAUGER POCT-GLUCOSE METER Routine 03/14/2018 12:00 PM CARTRIDGE GAUGER POCT-GLUCOSE METER Routine 03/14/2018 7:10 AM CARTRIDGE GAUGER CBC W/PLT COUNT & AUTO Routine 03/14/2018 DIFFERENTIAL 4:01 AM [employer] CBC W/PLT COUNT & AUTO Routine 03/14/2018 DIFFERENTIAL 4:01 AM [employer] PT/APTT Routine 03/14/2018 4:01 AM [employer] HEMOGLOBIN A1C Routine 03/14/2018 4:01 AM [employer] BASIC METABOLIC PANEL (7) Routine 03/14/2018 4:01 AM [employer] POCT-GLUCOSE METER Routine 03/13/2018 9:14 PM [employer] POCT-GLUCOSE METER Routine 03/13/2018 4:27 PM [employer] POCT-GLUCOSE METER Routine 03/13/2018 1:02 PM [employer] POCT-GLUCOSE METER Routine 03/13/2018 11:47 AM [employer] POCT-GLUCOSE METER Routine 03/13/2018 7:19 AM [employer] CBC W/PLT COUNT & AUTO Routine 03/13/2018 DIFFERENTIAL 3:50 AM [employer] CBC W/PLT COUNT & AUTO Routine 03/13/2018 DIFFERENTIAL 3:50 AM [employer] PT/APTT Routine 03/13/2018 3:50 AM [employer] HEMOGLOBIN A1C Routine 03/13/2018 3:50 AM [employer] BASIC METABOLIC PANEL (7) Routine 03/13/2018 3:50 AM [employer] POCT-GLUCOSE METER Routine 03/12/2018 9:28 PM [employer] POCT-GLUCOSE METER Routine 03/12/2018 4:50 PM [employer] POCT-GLUCOSE METER Routine 03/12/2018 12:15 PM [employer] POCT-GLUCOSE METER Routine 03/12/2018 7:20 AM [employer] PT/APTT Routine 03/12/2018 4:01 AM [employer] HEMOGLOBIN A1C Routine 03/12/2018 4:01 AM [employer] BASIC METABOLIC PANEL (7) Routine 03/12/2018 4:01 AM [employer] XR CHEST 2 VIEWS Routine 03/11/2018 10:16 PM [employer] POCT-GLUCOSE METER Routine 03/11/2018 9:10 PM [employer] POCT-GLUCOSE METER Routine 03/11/2018 5:54 PM [employer] MAGNESIUM Routine 03/11/2018 4:42 PM [employer] BASIC METABOLIC PANEL (7) Routine 03/11/2018 4:42 PM [employer] CBC W/PLT COUNT & AUTO Routine 03/11/2018 DIFFERENTIAL 3:10 PM [employer]GE [employer] CBC W/PLT COUNT & AUTO Routine 03/11/2018 DIFFERENTIAL 3:10 PM [employer] after 03/31/2017 Results * POC-Glucose meter (03/22/2018 7:50 AM [employer]TR[employer]GE [employer]) Only the most recent of 51 results within the time period is included. POC-Glucose Meter 143 (H)Comment: TESTED AT 70 - 110 mg/dL [facility] [address] [facility] [id number] Specimen Blood Performing Organization Address City/State/Zipcode Phone Number [facility] [address] [place] [address] [facility] * CBC with platelet count + automated diff (03/21/2018 6:29 AM [employer]TRIDGE GAUGER) Only the most recent of 14 results within the time period is included. WBC 7.4 3.5 - 10.5 K/L [facility] RBC 3.13 (L) 4.63 - 6.08 M/L [facility] Hemoglobin 8.8 (L) 13.7 - 17.5 GM/DL [facility] Hematocrit 28.4 (L) 40.1 - 51.0 % [facility] MCV 90.7 79.0 - 92.2 fL [facility] MCH 28.1 25.7 - 32.2 pg [facility] MCHC 31.0 (L) 32.3 - 36.5 GM/DL [facility] RDW 16.2 (H) 11.6 - 14.4 % [facility] Platelets 255 150 - 450 K/CU MM [facility] MPV 9.3 (L) 9.4 - 12.4 fL [facility] nRBC 0 0 - 0 /100 WBC [facility] % Neutros 64 % [facility] % Lymphs 19 % [facility] % Monos 13 % [facility] % Eos 4 % [facility] % Baso 0 % [facility] # Neutros 4.68 1.78 - 5.38 K/L [facility] # Lymphs 1.39 1.32 - 3.57 K/L [facility] # Monos 0.96 (H) 0.30 - 0.82 K/L [facility] # Eos 0.26 0.04 - 0.54 K/L [facility] # Baso 0.02 0.01 - 0.08 K/L [facility] Immature 1 0 - 1 % [facility] Granulocytes-Relative [facility] Specimen Blood - Arm, Left Performing Organization Address City/[facility] Cent[facility] [address] [phone] * Magnesium (03/21/2018 6:29 AM CARTRIDGE GAUGER) Only the most recent of 12 results within the time period is included. Magnesium 1.8 1.6 - 2.6 mg/dL [facility] Specimen Blood - Arm, Left Performing Organization Address [facility] Phone Number [place] [phone] * Basic Metabolic Panel (03/21/2018 6:29 AM CARTRIDGE GAUGER) Only the most recent of 14 results within the time period is included. Sodium 138 136 - 145 meq/L [facility] Potassium 3.7 3.5 - 5.1 meq/L [facility] Chloride 103 98 - 107 meq/L [facility] CO2 29 22 - 29 meq/L [facility] BUN 16 7 - 21 mg/dL [facility] Creatinine 0.92 0.57 - 1.25 mg/dL [facility] Glucose 63 (L) 70 - 105 mg/dL [facility] Calcium 8.3 (L) 8.4 - 10.2 mg/dL [facility] EGFR 80Comment: ESTIMATED GFR IS mL/min/1.73 sq m [facility] NOT ACCURATE CREATININE [facility] CLEARANCE IN PREDICTING GLOMERULAR FILTRATION RATE. ESTIMATED GFR IS NOT APPLICABLE FOR DIALYSIS PATIENTS. Specimen Blood - Arm, Left Performing Organization Address [facility]/Zipcode Phone Number [facility] [address] [place] [address] [facility] * XR chest 1 view portable / bedside (03/21/2018 6:14 AM CARTRIDGE GAUGER) Only the most recent of 6 results within the time period is included. Narrative Performed At FINAL REPORT [facility] Chest one view. Clinical history: intubated Comparison: 03/20/2018 Discussion: A frontal chest is provided. Cardiomediastinal contours are unchanged. A shunt catheter is in stable position. Right IJ sheath has been removed. There is mild vascular congestion and interstitial edema. Patchy bibasilar opacities are unchanged. No pneumothorax. No large effusion. Signed: Rachna Goff MD Report Verified Date/Time:03/21/2018 07:27:08 Reading Location: [facility] Reading Room Procedure Note Interface, External Ris In - 03/21/2018 7:29 AM CARTRIDGE GAUGER FINAL REPORT Chest one view. Clinical history: intubated Comparison: 03/20/2018 Discussion: A frontal chest is provided. Cardiomediastinal contours are unchanged. A shunt catheter is in stable position. Right IJ sheath has been removed. There is mild vascular congestion and interstitial edema. Patchy bibasilar opacities are unchanged. No pneumothorax. No large effusion. Signed: Rachna Goff MD Report Verified Date/Time: 03/21/2018 07:27:08 Reading Location: [facility] Reading Room Performing Organization Address City/State/Zipcode Phone Number [facility] * ECHOCARDIOGRAM REPORT - SCAN (03/20/2018 5:11 PM CARTRIDGE GAUGER) Narrative Performed At * 2D Echo W/Doppler(CW/PW/Color) (03/20/2018 2:11 PM CARTRIDGE GAUGER) Ejection Fraction [facility] ECHO HEARTLAB [facility] Narrative Performed At Transthoracic Echocardiography Report (TTE) [facility] ECHO HEARTLAB Demographics [facility] Patient NameFIDE RENEEDate of Study03/20/2018 [facility] [id number] Gender Male Visit [id number] Race [id number] Number Date of 1940 ReferringSuzi Cuevas Physician Age 77 year(s) SonographerSandee Parrish RDCS Interpreting Physician DYLON Mejia Procedure Type of Study TTE procedure:2DECHO W DOPPLER(CW/PW/COLOR) (Routine) Indications:Acute Chest Pain/ Suspected CAD. Clinical History ACB x3 (03/15/18), CAD, Anemia, TJ, Respiratory insufficiency HGB 8.3 HCT 27.0 % Contrast Medium: Definity. Amount - 5 ml Height: 69 inches Weight: 97.52 kg (215 lbs) BSA: 2.13 m^2 BMI: 31.75 kg/m^2 HR: 72 bpm BP: 123/58 mmHg Summary 1. The following segment(s) appear akinetic: distal septum, distal anterolateral and distal inferior. The other segments contract normally. Estimated LVEF by qualitative assessment is lower limits of normal (50%) . 2. Grade 1 diastolic dysfunction (impaired relaxation and low-normal LA pressure). Estimated peak systolic PA pressure is 25-30 mmHg . 3. No significant pericardial effusion is visualized. Previous Study In comparison with the prior exam 03/15/18 the following changes are noted: apical wall motion abnormalities are new. Signature Findings Technical Quality: Technically difficult exam. Left Ventricle The left ventricle is chamber size (by PSLAX dimension) is normal (male - LVIDd 4.2-5.8cm) . Mild concentric LV hypertrophy. Septal motion is abnormal, likely related to prior cardiac surgery . The following segment(s) appear akinetic: distal septum, distal anterolateral and distal inferior. The other segments contract normally. Estimated LVEF by qualitative assessment is lower limits of normal (50%) . Grade 1 diastolic dysfunction (impaired relaxation and low-normal LA pressure). Left AtriumLA size is normal (16-34 ml/m2) . Right VentricleThe right ventricular chamber size and systolic function are within normal limits. Right Atrium RA size is normal. Aortic Valve AoV cusp mobility is normal . Normal AoV structure. Mitral Valve Mild MV leaflet thickening. Mild mitral annular calcification. Tricuspid ValveTV structure is normal. Estimated peak systolic PA pressure is 25-30 mmHg . A trace of tricuspid regurgitation. Pulmonic Valve Normal PV structure and function. AortaAortic root size (SInus of Valsalva diameter) is normal . Proximal ascending aorta size is normal . PericardiumNo significant pericardial effusion is visualized. IVC/SVC/PA/PV/PleuralThe estimated RA pressure by IVC dynamics 5-10mmHg . Chambers/Structures Left Atrium LA Dimension: 3.7 cm LA Area: 25.08 cm^2 LA Volume: 79.02 ml LA Vol. Index: 37 ml/m^2 Left Ventricle LVIDd: 5.49 cm LVEDV:155.67 ml LVIDs: 3.46 cm LV Septum Diastolic: 1.3 cm LV PW Diastolic: 1.3 cm LV FS: 37 % LVOT Diameter: 2.1 cm Right Atrium RA Vol. (Sngl Plane): 65.97 ml Aorta Ascending Aorta: 2.21 cm Descending Aorta: 0.17 cm Doppler/Quantitative Measurements Mitral Valve MV Peak E-Wave: 1 m/s MV Peak A-Wave: 1.02 m/s E/A Ratio: 0.97 Peak Gradient: 3.97 mmHg Deceleration Time: 191.8 msec MV Ole. Peak: Aortic Valve Peak Velocity: 1.39 m/sMean Velocity: 0.97 m/s Peak Gradient: 7.78 mmHg Mean Gradient: 4.29 mmHg AV Area (continuity): 2.73 cm^2 AV VTI: 28.97 cm AV DVI: 0.79 LVOT Peak Velocity: 1.02 m/s Peak Gradient: 4.17 mmHg Mean Velocity: 0.72 m/s Mean Gradient: 2.49 mmHg LVOT Diameter: 2.1 cm LVOT VTI: 22.86 cm LVOT Area: 3.46 cm^2LVOT SV:79.14 ml LVOT CO: 5.7 l/minLVOT CI: 2.68 l/min/m^2 Tricuspid Valve TR Velocity: 2.08 m/s TR Gradient: 17.28 mmHg Procedure Note Interface, External Ris In - 03/20/2018 4:23 PM CARTRIDGE GAUGER Transthoracic Echocardiography Report (TTE) Demographics Patient Name FIDE RENEE Date of Study 03/20/2018 MARILYN Gender Male Visit Number [id number] Race Room Number [id number] Number Date of 1940 Referring Suzi Cuevas Physician Age 77 year(s) Sap Bpc Developer Sandee Parrish RDCS Interpreting Physician DYLON Mejia Procedure Type of Study TTE procedure:2DECHO W DOPPLER(CW/PW/COLOR) (Routine) Indications:Acute Chest Pain/ Suspected CAD. Clinical History ACB x3 (03/15/18), CAD, Anemia, TJ, Respiratory insufficiency HGB 8.3 HCT 27.0 % Contrast Medium: Definity. Amount - 5 ml Height: 69 inches Weight: 97.52 kg (215 lbs) BSA: 2.13 m^2 BMI: 31.75 kg/m^2 HR: 72 bpm BP: 123/58 mmHg Summary 1. The following segment(s) appear akinetic: distal septum, distal anterolateral and distal inferior. The other segments contract normally. Estimated LVEF by qualitative assessment is lower limits of normal (50%) . 2. Grade 1 diastolic dysfunction (impaired relaxation and low-normal LA pressure). Estimated peak systolic PA pressure is 25-30 mmHg . 3. No significant pericardial effusion is visualized. Previous Study In comparison with the prior exam 03/15/18 the following changes are noted: apical wall motion abnormalities are new. Signature Findings Technical Quality: Technically difficult exam. Left Ventricle The left ventricle is chamber size (by PSLAX dimension) is normal (male - LVIDd 4.2-5.8cm) . Mild concentric LV hypertrophy. Septal motion is abnormal, likely related to prior cardiac surgery . The following segment(s) appear akinetic: distal septum, distal anterolateral and distal inferior. The other segments contract normally. Estimated LVEF by qualitative assessment is lower limits of normal (50%) . Grade 1 diastolic dysfunction (impaired relaxation and low-normal LA pressure). Left Atrium LA size is normal (16-34 ml/m2) . Right Ventricle The right ventricular chamber size and systolic function are within normal limits. Right Atrium RA size is normal. Aortic Valve AoV cusp mobility is normal . Normal AoV structure. Mitral Valve Mild MV leaflet thickening. Mild mitral annular calcification. Tricuspid Valve TV structure is normal. Estimated peak systolic PA pressure is 25-30 mmHg . A trace of tricuspid regurgitation. Pulmonic Valve Normal PV structure and function. Aorta Aortic root size (SInus of Valsalva diameter) is normal . Proximal ascending aorta size is normal . Pericardium No significant pericardial effusion is visualized. IVC/SVC/PA/PV/Pleural The estimated RA pressure by IVC dynamics 5-10mmHg . Chambers/Structures Left Atrium LA Dimension: 3.7 cm LA Area: 25.08 cm^2 LA Volume: 79.02 ml LA Vol. Index: 37 ml/m^2 Left Ventricle LVIDd: 5.49 cm LVEDV:155.67 ml LVIDs: 3.46 cm LV Septum Diastolic: 1.3 cm LV PW Diastolic: 1.3 cm LV FS: 37 % LVOT Diameter: 2.1 cm Right Atrium RA Vol. (Sngl Plane): 65.97 ml Aorta Ascending Aorta: 2.21 cm Descending Aorta: 0.17 cm Doppler/Quantitative Measurements Mitral Valve MV Peak E-Wave: 1 m/s MV Peak A-Wave: 1.02 m/s E/A Ratio: 0.97 Peak Gradient: 3.97 mmHg Deceleration Time: 191.8 msec MV Ole. Peak: Aortic Valve Peak Velocity: 1.39 m/s Mean Velocity: 0.97 m/s Peak Gradient: 7.78 mmHg Mean Gradient: 4.29 mmHg AV Area (continuity): 2.73 cm^2 AV VTI: 28.97 cm AV DVI: 0.79 LVOT Peak Velocity: 1.02 m/s Peak Gradient: 4.17 mmHg Mean Velocity: 0.72 m/s Mean Gradient: 2.49 mmHg LVOT Diameter: 2.1 cm LVOT VTI: 22.86 cm LVOT Area: 3.46 cm^2 LVOT SV:79.14 ml LVOT CO: 5.7 l/min LVOT CI: 2.68 l/min/m^2 Tricuspid Valve TR Velocity: 2.08 m/s TR Gradient: 17.28 mmHg Performing Organization Address City/State/[facility] Phone Number [facility] * ECG 12 lead (03/19/2018 4:33 AM CARTRIDGE GAUGER) Only the most recent of 2 results within the time period is included. Narrative Performed At Ventricular Rate 93 BPM GE MUSE Atrial Rate 93 BPM P-R Interval 142 ms QRS Duration 106 ms Q-T Interval 404 ms QTC Calculation(Bazett) 502 ms P [place] 69 degrees R [place] 68 degrees T [place] 5 degrees Normal sinus rhythm Possible Left atrial enlargement Incomplete right bundle branch block Possible Inferior infarct , new Anterior infarct , possibly acute Prolonged QT ACUTE [place] / STEMI Abnormal ECG When compared with ECG of 14-MAR-2018 21:06, Anterior infarct is now Present Acute Inferior infarct is now Present Confirmed by MD RASHID JOSEPH P ([id number]) on 03/20/2018 6:52:43 AM Procedure Note Interface, External Ris In - 03/20/2018 6:53 AM CARTRIDGE GAUGER Ventricular Rate 93 BPM Atrial Rate 93 BPM P-R Interval 142 ms QRS Duration 106 ms Q-T Interval 404 ms QTC Calculation(Bazett) 502 ms P [place] 69 degrees R [place] 68 degrees T [place] 5 degrees Normal sinus rhythm Possible Left atrial enlargement Incomplete right bundle branch block Possible Inferior infarct , new Anterior infarct , possibly acute Prolonged QT ACUTE [place] / STEMI Abnormal ECG When compared with ECG of 14-MAR-2018 21:06, Anterior infarct is now Present Acute Inferior infarct is now Present Confirmed by MD RASHID JOSEPH P ([id number]) on 03/20/2018 6:52:43 AM Performing Organization Address City/State/Zipcode Phone Number [employer] [facility] * TRANSFUSION SERVICE REPORT - SCAN (03/18/2018 6:00 PM CARTRIDGE GAUGER) Only the most recent of 4 results within the time period is included. Narrative Performed At * NM muga study (rest) (03/18/2018 3:30 PM CARTRIDGE GAUGER) Narrative Performed At FINAL REPORT [employer] PROCEDURE:Resting RADIONUCLIDE VENTRICULOGRAM (MUGA Scan) CPT CODE:07945 INDICATION: Prior revascularization (either PTCA or CABG) HISTORY:Cardiac risk factors: Hypertension, hyperlipidemia, diabetes, obesity. Other cardiovascular history: Known CAD, prior CABG. PROTOCOL:Autologous red blood cells were labeled with Tc-99m pertechnetate by the in vitro method. 21.8 mCi of Tc-99m was injected intravenously as labeled red blood cells. Equilibrium gated planar cardiac images were obtained in multiple views at rest. IMAGING FINDINGS:Study quality is good. LV volume appears normal. RV volume appears normal. Gated images obtained at rest show paradoxical septal motion (consistent with prior cardiac surgery), but otherwise otherwise normal LV wall motion and thickening. LVEF is 40%.There is photopenia, heart suggestive of the pericardial effusion. IMPRESSION: 1. Abnormal resting radionuclide ventriculogram. Mild to moderately reduced resting global LVEF. The exam suspicious for pericardial effusion. 2. No previous [facility] study for comparison. Signed: Lon Coleman MD Report Verified Date/Time:03/18/2018 16:16:49 Reading Location: [address] Reading Room Procedure Note Interface, External Ris In - 03/18/2018 4:19 PM CARTRIDGE GAUGER FINAL REPORT PROCEDURE: Resting RADIONUCLIDE VENTRICULOGRAM (MUGA Scan) CPT CODE: [id number] INDICATION: Prior revascularization (either PTCA or CABG) HISTORY: Cardiac risk factors: Hypertension, hyperlipidemia, diabetes, obesity. Other cardiovascular history: Known CAD, prior CABG. PROTOCOL: Autologous red blood cells were labeled with Tc-99m pertechnetate by the in vitro method. 21.8 mCi of Tc-99m was injected intravenously as labeled red blood cells. Equilibrium gated planar cardiac images were obtained in multiple views at rest. IMAGING FINDINGS: Study quality is good. LV volume appears normal. RV volume appears normal. Gated images obtained at rest show paradoxical septal motion (consistent with prior cardiac surgery), but otherwise otherwise normal LV wall motion and thickening. LVEF is 40%. There is photopenia, heart suggestive of the pericardial effusion. IMPRESSION: 1. Abnormal resting radionuclide ventriculogram. Mild to moderately reduced resting global LVEF. The exam suspicious for pericardial effusion. 2. No previous [facility] study for comparison. Signed: Lon Coleman MD Report Verified Date/Time: 03/18/2018 16:16:49 Reading Location: [address] Reading Room Performing Organization Address City/[facility] Phone Number [facility] * Prepare Leuko-Red RBC (03/17/2018 11:54 PM CARTRIDGE GAUGER) Only the most recent of 2 results within the time period is included. CROSSMATCH COMPATIBLE SAFETRACE TX Unit ABO A Pos SAFETRACE TX UNIT NUMBER [id number] SAFETRACE TX Status TRANSFUSED SAFETRACE TX Blood Bank Product RED BLOOD CELLS SAFETRACE TX PRODUCT CODE [id number] SAFETRACE TX Specimen Other Performing Organization Address City/[facility] Phone Number SAFETRACE TX * Blood gas, arterial (03/17/2018 3:12 AM CARTRIDGE GAUGER) Only the most recent of 15 results within the time period is included. pH, Arterial 7.47 (H) 7.35 - 7.45 [facility] pCO2, Arterial 35 35 - 45 mmHg [facility] pO2, Arterial 72 (L) 80 - 90 mmHg [facility] O2 Sat, Arterial 95.5 (L) 96.0 - 97.0 % [facility] HCO3, Arterial 25 21 - 29 mmol/L [facility] Base Excess, Arterial 1.6 -2.0 - 3.0 mmol/L [facility] Patient Temperature 37.0 C [facility] FIO2 21.0 % [facility] Specimen Blood, Arterial Performing Organization Address [facility] Phone Number [address] * Lactic acid, arterial, whole blood (03/17/2018 3:10 AM CARTRIDGE GAUGER) Only the most recent of 4 results within the time period is included. Lactate, Art 0.8 0.5 - 2.2 mmol/L [facility] Specimen Blood, Arterial Performing Organization Address [facility] Phone Number [address] * Phosphorus (03/17/2018 3:10 AM CARTRIDGE GAUGER) Only the most recent of 4 results within the time period is included. Phosphorus 2.8 2.3 - 4.7 mg/dL [facility] Specimen Blood Performing Organization Address [facility] Phone Number [address] * Potassium-Stat Lab (03/16/2018 11:01 AM CARTRIDGE GAUGER) Only the most recent of 11 results within the time period is included. Potassium 4.1 3.6 - 5.5 meq/L [facility] Specimen Blood, Arterial Performing Organization Address City/[facility] Phone Number [address] * Sodium Na-Stat Lab (03/16/2018 11:01 AM CARTRIDGE GAUGER) Only the most recent of 11 results within the time period is included. Sodium 137 135 - 148 meq/L [facility] Specimen Blood, Arterial Performing Organization Address City/[facility] Phone Number [place] [phone] [place] [address] * Glucose-Stat Lab (03/16/2018 11:01 AM CARTRIDGE GAUGER) Only the most recent of 11 results within the time period is included. Glucose 121 (H) 70 - 110 mg/dL [facility] Specimen Blood, Arterial Performing Organization Address [facility] [place] [address] [phone] * HGB/HCT (H&H)-Stat Lab (03/16/2018 11:01 AM CARTRIDGE GAUGER) Only the most recent of 10 results within the time period is included. Hemoglobin 8.4 (L) 13.0 - 16.8 g/dL [facility] Hematocrit 25.0 (L) 40.0 - 50.0 % [facility] Specimen Blood, Arterial Performing Organization Address [facility] [address] [phone] [place] [address] * Lactic acid, venous, whole blood (03/16/2018 7:59 AM CARTRIDGE GAUGER) Only the most recent of 2 results within the time period is included. Lactate, Venous 2.0 0.5 - 2.2 mmol/L [facility] Specimen Blood Performing Organization Address City/[facility] [address] [phone] [place] [address] * Troponin I (03/16/2018 6:51 AM CARTRIDGE GAUGER) Only the most recent of 3 results within the time period is included. Troponin I 23.95 (HH) 0.00 - 0.03 ng/mL [facility] Specimen Blood Narrative Performed At Troponin I (TnI) levels must be interpreted in the context of the presenting [facility] symptoms and the clinical findings. Elevated TnI levels indicate myocardial [facility] damage, but are not specific for ischemic heart disease. Elevated TnI levels are seen in patients with other cardiac conditions (including myocarditis and congestive heart failure), and slight TnI elevations occur in patients with other conditions, including sepsis, renal failure, acidosis, acute neurological disease, and persistent tachyarrhythmia. Performing Organization Address City/[facility] Phone Number [address] [address] [facility] * Oxygen saturation, measured (03/16/2018 3:06 AM CARTRIDGE GAUGER) Only the most recent of 4 results within the time period is included. O2 Saturation (Measured) 79.4 % [facility] Specimen Blood Performing Organization Address City/[facility] Phone Number [address] [address] [facility] * Transfuse Leuko-Red RBC (03/16/2018 3:01 AM CARTRIDGE GAUGER) Only the most recent of 4 results within the time period is included. * Potassium (03/15/2018 11:13 PM CARTRIDGE GAUGER) Only the most recent of 2 results within the time period is included. Potassium 3.9 3.5 - 5.1 meq/L [facility] Specimen Blood Narrative Performed At Every 8 hours PRN for Creatinine greater than or equal to 2 mg/dL. [facility] Performing Organization Address [facility] [place] [address] [phone] [place] [address] * Glucose-STAT (03/15/2018 8:17 PM CARTRIDGE GAUGER) Glucose 238 (H) 70 - 105 mg/dL [facility] Specimen Blood Narrative Performed At Check Serum Magnesium level 2 hours after IV magnesium replacement. [facility] Performing Organization Address [facility] Phone Number [address] [phone] [facility] * Manual Differential (03/15/2018 6:16 PM CARTRIDGE GAUGER) % Neutros 83 % [facility] % Lymphs 3 % [facility] % Monos 3 % [facility] % Bands 11 (H) 0 - 10 % [facility] # Neutros 8.38 (H) 1.78 - 5.38 K/ul [facility] # Lymphs 0.30 (L) 1.32 - 3.57 K/ul [facility] # Monos 0.30 0.30 - 0.82 K/uL [facility] # Bands 1.11 (H) 0.00 - 0.80 K/uL [facility] Total Counted 100 [facility] WBC Morphology Normal [facility] Platelet Morphology Normal [facility] Anisocytosis 1+ few [facility] Microcytes 1+ few [facility] Artifact Present [facility] Platelet Conc Decreased [facility] Specimen Blood - Line, Arterial Narrative Performed At Received comment: [facility] User comments: [facility] Slide comments: Performing Organization Address City/[facility] Phone Number [facility] [address] [place] [address] [facility] * PT/aPTT (03/15/2018 6:16 PM CARTRIDGE GAUGER) Only the most recent of 4 results within the time period is included. Protime 19.0 (H) 11.7 - 14.7 seconds [facility] INR 1.6 <=5.9 [facility] PTT 38.9 (H) 22.5 - 36.0 seconds [facility] Specimen Blood - Line, Arterial Narrative Performed At RECOMMENDED COUMADIN/WARFARIN INR THERAPY RANGES [facility] STANDARD DOSE: 2.0 - 3.0 Includes: PROPHYLAXIS for venous thrombosis, [facility] systemic embolization; TREATMENT for venous thrombosis and/or pulmonary embolus. HIGH RISK: Target INR is 2.5-3.5 for patients with mechanical heart valves. Performing Organization Address City/[facility] Centercode Phone Number [place] [address] [phone] [place] [address] * Calcium, Ionized (03/15/2018 6:16 PM CARTRIDGE GAUGER) Only the most recent of 7 results within the time period is included. Calcium, Ion 1.13 1.12 - 1.27 mmol/L [facility] pH, Blood 7.41 [facility] Specimen Blood - Line, Arterial Performing Organization Address [facility] Centerc[place] [address] [phone] [place] [address] * Fibrinogen (03/15/2018 6:16 PM CARTRIDGE GAUGER) Fibrinogen 201 (L) 225 - 434 mg/dl [facility] Specimen Blood - Line, Arterial Performing Organization Address [facility] [place] [address] [phone] [place] [address] * Prepare RBC (03/15/2018 4:01 PM CARTRIDGE GAUGER) CROSSMATCH COMPATIBLE SAFETRACE TX Unit ABO A Pos SAFETRACE TX UNIT NUMBER [id number] SAFETRACE TX Status RETURNED FROM ISSUE SAFETRACE TX Blood Bank Product RED BLOOD CELLS SAFETRACE TX PRODUCT CODE [id number] SAFETRACE TX CROSSMATCH COMPATIBLE SAFETRACE TX Unit ABO A Pos SAFETRACE TX UNIT NUMBER [id number] SAFETRACE TX Status RETURNED FROM ISSUE SAFETRACE TX Blood Bank Product RED BLOOD CELLS SAFETRACE TX PRODUCT CODE [id number] SAFETRACE TX Performing Organization Address [facility] Phone Number SAFETRACE TX * POC ACTIVATED CLOTTING TIME (03/15/2018 2:30 PM CARTRIDGE GAUGER) Only the most recent of 8 results within the time period is included. Activated Clotting Time 98Comment: TESTED AT [facility] sec [address] Specimen Blood Performing Organization Address [facility] Cent[facility] Phone Number [address] [address] [facility] * ECHOCARDIOGRAM REPORT - SCAN (03/15/2018 10:20 AM CARTRIDGE GAUGER) Narrative Performed At * PHILLIP (03/15/2018 8:37 AM CARTRIDGE GAUGER) Narrative Performed At Jose Gaviria MD 03/15/20183:35 PM PHILLIP Date: 03/15/2018 8:37 AMLocation: OR Examiner: Jose Gaviria MD Eagleton, Mark Christopher, MD Intubated Insertion: easy Modalities: 2D, CFM, CWD and PWD Pre Intervention Summary: Aorta: No aneurysm, no dissection, no mobile plaques; grade II atheroma asc Ao. Arch, desc Ao AV: trileaflet morphology, no aortic stenosis, trace-mild aortic regurgitation LV: dilated chamber size , mild LVH, normal systolic function (EF 54% by full volume), no RWMA, no thrombus MV: normal morphology, trace mitral regurgitation, no mitral stenosis LA: no ROBERT thrombus, normal size and function PV: limited visualization RV: normal sized chamber, normal function, no thrombus TV: normal morphology, trace tricuspid regurgitation; trace PI RA: no thrombus no PFO by color dopper flow 1cm pericardial effusion All findings communicated to surgical team. Post Intervention Summary:S/p OPCABG x3, on 4 mcg/m NE gtt Unchanged LV function, LVEF 53% by Simpsons.No RWMAs. RV function normal and unchanged from baseline Trace MR and AI, unchanged from baseline No TR No aortic dissection or interval aortic pathology The above was communicated to the surgical team Procedure Note Jose Gaviria MD - 03/15/2018 8:37 AM CARTRIDGE GAUGER PHILLIP Date: 03/15/2018 8:37 AM Location: OR Examiner: Jose Gaviria MD Eagleton, Arnulfo Pratt MD Intubated Insertion: easy Modalities: 2D, CFM, CWD and PWD Pre Intervention Summary: Aorta: No aneurysm, no dissection, no mobile plaques; grade II atheroma asc Ao. Arch, desc Ao AV: trileaflet morphology, no aortic stenosis, trace-mild aortic regurgitation LV: dilated chamber size , mild LVH, normal systolic function (EF 54% by full volume), no RWMA, no thrombus MV: normal morphology, trace mitral regurgitation, no mitral stenosis LA: no ROBERT thrombus, normal size and function PV: limited visualization RV: normal sized chamber, normal function, no thrombus TV: normal morphology, trace tricuspid regurgitation; trace PI RA: no thrombus no PFO by color dopper flow 1cm pericardial effusion All findings communicated to surgical team. Post Intervention Summary: S/p OPCABG x3, on 4 mcg/m NE gtt Unchanged LV function, LVEF 53% by Simpsons. No RWMAs. RV function normal and unchanged from baseline Trace MR and AI, unchanged from baseline No TR No aortic dissection or interval aortic pathology The above was communicated to the surgical team * Vitamin B12 and Folate (03/15/2018 4:21 AM CARTRIDGE GAUGER) Vitamin B12 278 213 - 816 pg/mL [facility] Folate 9.7 >=7.0 ng/mL [facility] Specimen Blood - Arm, Right Performing Organization Address [facility] Phone Number [address] [address] [phone] [place] [address] * Iron, TIBC, % sat. (without ferritin) (03/15/2018 4:21 AM CARTRIDGE GAUGER) Iron 78.0 40.0 - 160.0 ug/dL [facility] TIBC 313 250 - 450 ug/dL [facility] Iron % Saturation 25 20 - 55 % [facility] Specimen Blood - Arm, Right Performing Organization Address [facility] Phone Number [address] [address] [phone] [place] [address] * Reticulocyte count (03/15/2018 4:21 AM CARTRIDGE GAUGER) % Retic 1.4 0.5 - 1.8 % [facility] Specimen Blood - Arm, Right Performing Organization Address [facility] Phone Number [address] [address] [facility] * Lactate dehydrogenase (LDH) (03/15/2018 4:21 AM CARTRIDGE GAUGER) LDH 230 (H) 125 - 220 U/L [facility] Specimen Blood - Arm, Right Performing Organization Address City/[facility]/Zipcode Phone Number [address] * Ferritin (03/15/2018 4:21 AM CARTRIDGE GAUGER) Ferritin 27 5 - 275 ng/mL [facility] Specimen Blood - Arm, Right Performing Organization Address City/[facility] Phone Number [address] * Type and screen, automated (03/14/2018 9:53 PM CARTRIDGE GAUGER) ABO/RH AUTOMATED (BEAKER) A POSITIVE [facility] Ab Scrn NEGATIVE [facility] Specimen Blood Performing Organization Address [facility] Phone Number [address] * 2D Echo W/Doppler(CW/PW/Color) (03/14/2018 8:27 PM CARTRIDGE GAUGER) Ejection Fraction [facility] Narrative Performed At Transthoracic Echocardiography Report (TTE) [facility] Demographics [facility] Patient Name FIDE RENEE Date of Study 03/14/2018 MARILYN [id number] Male Visit Number [id number] Room Number SCPR Number Date of Birth1940Referring Physician Suzi Cuevas Age77 year(s)Sap Bpc Developer Renetta Castillo [facility] AnalystMailRoseanna Meraz MD, MD Procedure Type of Study TTE procedure:2DECHO W DOPPLER(CW/PW/COLOR) (STAT) Indications:Known or suspected cardiomyopathy. Clinical History HGB 8.6 HCT 28.7 % Contrast Medium: Definity. Height: 69 inches Weight: 97.52 kg (215 lbs) BSA: 2.13 m^2 BMI: 31.75 kg/m^2 HR: 76 bpm BP: 152/68 mmHg Summary LV endocardium is incompletely visualized despite IV ultrasound enhancing agent. The left ventricle is chamber size (by PSLAX dimension) is normal (male - LVIDd 4.2-5.8cm) . Mild concentric LV hypertrophy. The following segment(s) appear mildly hypokinetic: basal inferoseptum and inferior. Estimated LVEF by qualitative assessment is normal (55%) . Grade 1 diastolic dysfunction (impaired relaxation and low-normal LA pressure). Global RV systolic size/ function is normal . Signature Findings Technical Quality: Technically difficult exam. Left Ventricle LV endocardium is incompletely visualized despite IV ultrasound enhancing agent. The left ventricle is chamber size (by PSLAX dimension) is normal (male - LVIDd 4.2-5.8cm) . Mild concentric LV hypertrophy. The following segment(s) appear mildly hypokinetic: basal inferoseptum and inferior. Estimated LVEF by qualitative assessment is normal (55%) . Grade 1 diastolic dysfunction (impaired relaxation and low-normal LA pressure). Left AtriumLA is incompletely visualized, size based on linear measurement is normal. Right VentricleGlobal RV systolic size/ function is normal . Right Atrium RA size is probably normal based on available views. Aortic Valve Normal AoV structure. No evidence of aortic regurgitation or stenosis Mitral Valve Mild MV leaflet thickening. Mild mitral regurgitation. Tricuspid ValveA trace of tricuspid regurgitation. Estimated peak systolic PA pressure is cannot be determined due to inadequate TR velocity signal . Pulmonic Valve Normal PV structure and function. A trace of pulmonary regurgitation. AortaAortic root size (SInus of Valsalva diameter) is normal . PericardiumAn echo lucent space is noted consistent with prominent pericardial fat pad. No significant pericardial effusion is visualized. IVC/SVC/PA/PV/PleuralThe inferior vena cava size is normal . The estimated RA pressure by IVC dynamics 0-5mmHg . Chambers/Structures Left Ventricle LVIDd: 5.48 cm LVIDs: 3.43 cm LV Septum Diastolic: 1.29 cm LV PW Diastolic: 1.21 cmLV FS: 37.4 % LVEDV Connolly's:111.99 ml LVESV Connolly's:48.35 mlLVEDVI: 53 ml/m^2 LVEF Connolly's: 56.8 %LVESVI: 23 ml/m^2 LVOT Diameter: 1.9 cm Right Ventricle TAPSE: 2.13 cm Aorta Ao Root S of Laura.: 2.59 cm Doppler/Quantitative Measurements Mitral Valve MV Peak E-Wave: 0.84 m/sMV Peak A-Wave: 0.97 m/s E/A Ratio: 0.86 Peak Gradient: 2.83 mmHg Deceleration Time: 170.3 msec MV Ole. Peak: Tissue Doppler E' Lateral Velocity: 0.06 m/s E/E': 13.62 Aortic Valve Peak Velocity: 1.13 m/sMean Velocity: 0.72 m/s Peak Gradient: 5.09 mmHg Mean Gradient: 2.46 mmHg AV Area (continuity): 2.78 cm^2 AV VTI: 27.59 cm AV DVI: 0.98 LVOT Peak Velocity: 0.96 m/s Peak Gradient: 3.67 mmHg Mean Velocity: 0.68 m/s Mean Gradient: 2.08 mmHg LVOT Diameter: 1.9 cm LVOT VTI: 27.05 cm LVOT Area: 2.84 cm^2LVOT SV:76.66 ml LVOT CO: 5.83 l/min LVOT CI: 2.74 l/min/m^2 Procedure Note Interface, External Ris In - 03/15/2018 9:34 AM CARTRIDGE GAUGER Transthoracic Echocardiography Report (TTE) Demographics Patient Name FIDE RENEE Date of Study 03/14/2018 MARILYN Gender Male Visit Number [id number] Race Room Number SCPR Number Date of 1940 Referring Physician Suzi Cuevas Age 77 year(s) Sap Bpc Developer Renetta Castillo [facility] [employer] Hand Finisher Renetta Read Interpreting Jose Anne, Physician MD Walter Hdz MD Procedure Type of Study TTE procedure:2DECHO W DOPPLER(CW/PW/COLOR) (STAT) Indications:Known or suspected cardiomyopathy. Clinical History HGB 8.6 HCT 28.7 % Contrast Medium: Definity. Height: 69 inches Weight: 97.52 kg (215 lbs) BSA: 2.13 m^2 BMI: 31.75 kg/m^2 HR: 76 bpm BP: 152/68 mmHg Summary LV endocardium is incompletely visualized despite IV ultrasound enhancing agent. The left ventricle is chamber size (by PSLAX dimension) is normal (male - LVIDd 4.2-5.8cm) . Mild concentric LV hypertrophy. The following segment(s) appear mildly hypokinetic: basal inferoseptum and inferior. Estimated LVEF by qualitative assessment is normal (55%) . Grade 1 diastolic dysfunction (impaired relaxation and low-normal LA pressure). Global RV systolic size/ function is normal . Signature Findings Technical Quality: Technically difficult exam. Left Ventricle LV endocardium is incompletely visualized despite IV ultrasound enhancing agent. The left ventricle is chamber size (by PSLAX dimension) is normal (male - LVIDd 4.2-5.8cm) . Mild concentric LV hypertrophy. The following segment(s) appear mildly hypokinetic: basal inferoseptum and inferior. Estimated LVEF by qualitative assessment is normal (55%) . Grade 1 diastolic dysfunction (impaired relaxation and low-normal LA pressure). Left Atrium LA is incompletely visualized, size based on linear measurement is normal. Right Ventricle Global RV systolic size/ function is normal . Right Atrium RA size is probably normal based on available views. Aortic Valve Normal AoV structure. No evidence of aortic regurgitation or stenosis Mitral Valve Mild MV leaflet thickening. Mild mitral regurgitation. Tricuspid Valve A trace of tricuspid regurgitation. Estimated peak systolic PA pressure is cannot be determined due to inadequate TR velocity signal . Pulmonic Valve Normal PV structure and function. A trace of pulmonary regurgitation. Aorta Aortic root size (SInus of Valsalva diameter) is normal . Pericardium An echo lucent space is noted consistent with prominent pericardial fat pad. No significant pericardial effusion is visualized. IVC/SVC/PA/PV/Pleural The inferior vena cava size is normal . The estimated RA pressure by IVC dynamics 0-5mmHg . Chambers/Structures Left Ventricle LVIDd: 5.48 cm LVIDs: 3.43 cm LV Septum Diastolic: 1.29 cm LV PW Diastolic: 1.21 cm LV FS: 37.4 % LVEDV Connolly's:111.99 ml LVESV Connolly's:48.35 ml LVEDVI: 53 ml/m^2 LVEF Connolly's: 56.8 % LVESVI: 23 ml/m^2 LVOT Diameter: 1.9 cm Right Ventricle TAPSE: 2.13 cm Aorta Ao Root S of Laura.: 2.59 cm Doppler/Quantitative Measurements Mitral Valve MV Peak E-Wave: 0.84 m/s MV Peak A-Wave: 0.97 m/s E/A Ratio: 0.86 Peak Gradient: 2.83 mmHg Deceleration Time: 170.3 msec MV Ole. Peak: Tissue Doppler E' Lateral Velocity: 0.06 m/s E/E': 13.62 Aortic Valve Peak Velocity: 1.13 m/s Mean Velocity: 0.72 m/s Peak Gradient: 5.09 mmHg Mean Gradient: 2.46 mmHg AV Area (continuity): 2.78 cm^2 AV VTI: 27.59 cm AV DVI: 0.98 LVOT Peak Velocity: 0.96 m/s Peak Gradient: 3.67 mmHg Mean Velocity: 0.68 m/s Mean Gradient: 2.08 mmHg LVOT Diameter: 1.9 cm LVOT VTI: 27.05 cm LVOT Area: 2.84 cm^2 LVOT SV:76.66 ml LVOT CO: 5.83 l/min LVOT CI: 2.74 l/min/m^2 Performing Organization Address City/State/Zipcode Phone Number [facility] * CT brain without IV contrast (03/14/2018 8:05 PM CARTRIDGE GAUGER) Narrative Performed At FINAL REPORT [facility] CT head without contrast 03/14/2018 8:05 PM CLINICAL HISTORY: Pre-op eval of HEALTH CARE ANALYST shunt TECHNIQUE: Axial noncontrast CT images through the head were obtained. This examination was performed according to our departmental dose optimization program, which includes automated exposure control, adjustment of the mA and/or kV according to patient size, and/or use of iterated reconstruction technique. COMPARISON: None available FINDINGS: There is disproportion supratentorial ventriculomegaly, with features suggesting normal pressure hydrocephalus. The tip of a right retrosylvian approach ventriculostomy catheter terminates in the posterior body of the right lateral ventricle and is intact throughout its visualized course. There is no hemorrhage, mass, or extra-axial collection. There is a subacute to chronic infarct in the paramedian left occipital lobe. There is atherosclerotic calcification of the intracranial arterial vasculature. There is generalized parenchymal volume loss. The visualized paranasal sinuses and mastoid air cells are well aerated. The skull is intact. IMPRESSION: No intracranial hemorrhage or mass effect. Suspected normal pressure hydrocephalus. 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 Signed: Michael Alfaro MD Report Verified Date/Time:03/14/2018 20:08:16 Reading Location: [facility] Reading Room Procedure Note Interface, External Ris In - 03/14/2018 8:10 PM CARTRIDGE GAUGER FINAL REPORT CT head without contrast 03/14/2018 8:05 PM CLINICAL HISTORY: Pre-op eval of HEALTH CARE ANALYST shunt TECHNIQUE: Axial noncontrast CT images through the head were obtained. This examination was performed according to our departmental dose optimization program, which includes automated exposure control, adjustment of the mA and/or kV according to patient size, and/or use of iterated reconstruction technique. COMPARISON: None available FINDINGS: There is disproportion supratentorial ventriculomegaly, with features suggesting normal pressure hydrocephalus. The tip of a right retrosylvian approach ventriculostomy catheter terminates in the posterior body of the right lateral ventricle and is intact throughout its visualized course. There is no hemorrhage, mass, or extra-axial collection. There is a subacute to chronic infarct in the paramedian left occipital lobe. There is atherosclerotic calcification of the intracranial arterial vasculature. There is generalized parenchymal volume loss. The visualized paranasal sinuses and mastoid air cells are well aerated. The skull is intact. IMPRESSION: No intracranial hemorrhage or mass effect. Suspected normal pressure hydrocephalus. 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 Signed: Michael Alfaro MD Report Verified Date/Time: 03/14/2018 20:08:16 Reading Location: [facility] Reading Room Performing Organization Address City/State/Zipcode Phone Number GE RIS * Carotid doppler bilateral (03/14/2018 7:30 PM CARTRIDGE GAUGER) Ejection Fraction [facility] ECHO [facility]ART[facility] Impressions Performed At Right Impression [facility] ECHO [facility]ART[facility] 1. There is <50% diameter reduction (unable to obtain 2-D measurement due to [facility] shadowing) in the internal carotid artery with a peak velocity of 88/17 cm/sec and heterogeneous shadowing plaque. 2. There is non-occluding plaque in the external carotid artery. 3. There is non-occluding plaque in the common carotid artery. 4. The vertebral artery flow is antegrade . Left Impression 1. Post endarterectomy, the internal carotid artery is patent with a velocity of 99/22cm/sec. 2. There is >50% stenosis in the external carotid artery with a velocity of 263/23cm/sec. 3. There is non-occluding plaque in the common carotid artery. 4. The vertebral artery flow is antegrade . Conclusions Summary Carotid duplex scanning and color flow imaging were performed bilaterally. The arteries were difficult to visualize due to shadowing. The right internal carotid artery had <50% hemodynamically insignificant stenosis (unable to obtain 2-D measurement due to shadowing) with heterogeneous shadowing plaque. Post endarterectomy, the left internal carotid artery was patent with no significant stenosis. There was >50% stenosis in the left external carotid artery. The vertebral artery flow was antegrade and normal bilaterally. Signature Velocities are measured in cm/s ; Diameters are measured in cm Carotid Right Measurements +---------+----+----+-----+ + + + !Location !PSV !EDV !Angle!%Stenosis 2D !%Stenosis Doppler !Tortuosity ! +---------+----+----+-----+ + + + !Prox CCA !98.8!13.7!60 ! !! ! +---------+----+----+-----+ + + + !Dist CCA !95.7!9.9 !60 ! !! ! +---------+----+----+-----+ + + + !Prox ICA !88.2!17.4!60 ! !<50%! ! +---------+----+----+-----+ + + + !Prox ECA !117 !15.5!60 ! !! ! +---------+----+----+-----+ + + + !Vertebral!90.1!19.9!60 ! !! ! +---------+----+----+-----+ + + + - There is antegrade vertebral flow noted on the right side. - Additional Measurements:ICAPSV/CCAPSV 0.92.ICAEDV/CCAEDV 1.27. Carotid Left Measurements +---------+----+----+-----+ + + + !Location !PSV !EDV !Angle!%Stenosis 2D !%Stenosis Doppler !Tortuosity ! +---------+----+----+-----+ + + + !Prox CCA !95.7!11.8!60 ! !! ! +---------+----+----+-----+ + + + !Dist CCA !107 !17!58 ! !! ! +---------+----+----+-----+ + + + !Prox ICA !99.6!22.8!58 ! !!Yes! +---------+----+----+-----+ + + + !Dist ICA !102 !22.6!32 ! !!Yes! +---------+----+----+-----+ + + + !Prox ECA !263 !23.8! ! !>50%! ! +---------+----+----+-----+ + + + !Vertebral!80.4!22.3!60 ! !! ! +---------+----+----+-----+ + + + - There is antegrade vertebral flow noted on the left side. - Additional Measurements:ICAPSV/CCAPSV 0.95.ICAEDV/CCAEDV 1.93. Narrative Performed At LAB - Carotid Duplex Study [facility] ECHO [facility]ART[facility] Patient NameEmigdio RENEEte of Study03/14/2018 MARILYN Age77 Visit [id number] Gender Male Date of Birth1940 Referring Reynaanh Yovani Faith Room [id number] Physician Sap Bpc Developer Guerita PantojaInterpreting Alexa Reddy, KANDICETyson Procedure Type of Study: Cerebral: Carotid, CAROTID DOPPLER, BILATERAL. Indications for Study:CAD pre op eval for CABG. Patient Status:FILI. Study Location:Portable. Technical Quality:Technically Difficult. Risk Factors History of Disease + + + + !Diagnosis!Date!Comments ! + + + + !History/Risk Factors:!!CAD, Anemia! + + + + !History/Risk Factors:!03/14/2018!S/P Left CEA 01/2018 at [facility]! + + + + Procedure Note Interface, External Ris In - 03/14/2018 11:41 PM CARTRIDGE GAUGER PV LAB - Carotid Duplex Study Demographics Patient Name FIDE RENEE Date of Study 03/14/2018 MARILYN Age 77 Visit Number [id number] Gender Male Accession Number [id number] Date of 1940 Referring Suzi Cuevas Room Number [id number] Physician Sap Bpc Developer Guerita Pantoja Interpreting Alexa Reddy T Physician Procedure Type of Study: Cerebral: Carotid, CAROTID DOPPLER, BILATERAL. Indications for Study:CAD pre op eval for CABG. Patient Status:FILI. Study Location:Portable. Technical Quality:Technically Difficult. Risk Factors History of Disease + + + + !Diagnosis !Date !Comments ! + + + + !History/Risk Factors: ! !CAD, Anemia ! + + + + !History/Risk Factors: !03/14/2018!S/P Left CEA 01/2018 at [facility] ! + + + + Impressions Right Impression 1. There is <50% diameter reduction (unable to obtain 2-D measurement due to shadowing) in the internal carotid artery with a peak velocity of 88/17 cm/sec and heterogeneous shadowing plaque. 2. There is non-occluding plaque in the external carotid artery. 3. There is non-occluding plaque in the common carotid artery. 4. The vertebral artery flow is antegrade . Left Impression 1. Post endarterectomy, the internal carotid artery is patent with a velocity of 99/22cm/sec. 2. There is >50% stenosis in the external carotid artery with a velocity of 263/23cm/sec. 3. There is non-occluding plaque in the common carotid artery. 4. The vertebral artery flow is antegrade . Conclusions Summary Carotid duplex scanning and color flow imaging were performed bilaterally. The arteries were difficult to visualize due to shadowing. The right internal carotid artery had <50% hemodynamically insignificant stenosis (unable to obtain 2-D measurement due to shadowing) with heterogeneous shadowing plaque. Post endarterectomy, the left internal carotid artery was patent with no significant stenosis. There was >50% stenosis in the left external carotid artery. The vertebral artery flow was antegrade and normal bilaterally. Signature Velocities are measured in cm/s ; Diameters are measured in cm Carotid Right Measurements +---------+----+----+-----+ + + + !Location !PSV !EDV !Angle!%Stenosis 2D !%Stenosis Doppler !Tortuosity ! +---------+----+----+-----+ + + + !Prox CCA !98.8!13.7!60 ! ! ! ! +---------+----+----+-----+ + + + !Dist CCA !95.7!9.9 !60 ! ! ! ! +---------+----+----+-----+ + + + !Prox ICA !88.2!17.4!60 ! !<50% ! ! +---------+----+----+-----+ + + + !Prox ECA !117 !15.5!60 ! ! ! ! +---------+----+----+-----+ + + + !Vertebral!90.1!19.9!60 ! ! ! ! +---------+----+----+-----+ + + + - There is antegrade vertebral flow noted on the right side. - Additional Measurements:ICAPSV/CCAPSV 0.92.ICAEDV/CCAEDV 1.27. Carotid Left Measurements +---------+----+----+-----+ + + + !Location !PSV !EDV !Angle!%Stenosis 2D !%Stenosis Doppler !Tortuosity ! +---------+----+----+-----+ + + + !Prox CCA !95.7!11.8!60 ! ! ! ! +---------+----+----+-----+ + + + !Dist CCA !107 !17 !58 ! ! ! ! +---------+----+----+-----+ + + + !Prox ICA !99.6!22.8!58 ! ! !Yes ! +---------+----+----+-----+ + + + !Dist ICA !102 !22.6!32 ! ! !Yes ! +---------+----+----+-----+ + + + !Prox ECA !263 !23.8! ! !>50% ! ! +---------+----+----+-----+ + + + !Vertebral!80.4!22.3!60 ! ! ! ! +---------+----+----+-----+ + + + - There is antegrade vertebral flow noted on the left side. - Additional Measurements:ICAPSV/CCAPSV 0.95.ICAEDV/CCAEDV 1.93. Performing Organization Address City/State/Zipcode Phone Number [facility] * Arterial doppler arms bilateral (03/14/2018 4:12 PM [facility]) Ejection Fraction [facility] [place] Impressions Performed At Right Impression [facility] 1. There are normal triphasic Doppler waveforms in the subclavian, axillary, [facility] brachial, radial and ulnar arteries. 2. The arterial pressures and indices are as follows: brachial 206 mmHg, radial 171 mmHg (1.18) and ulnar 203 mmHg (1.17). 3. The index finger pressure is 181 mmHg with a normal finger/brachial index of 1.04. 4. The digits have adequate flow by PPG waveforms. 5. THE AVA'S IS ABNORMAL, THE HOWARD ARCH IS INTACT; HOWEVER, THERE IS DECREASED FLOW WITH COMPRESSIONS. 6. The radial artery measurements are as follows: Proximal - 0.20 cm, Mid - 0.16 cm, Distal - 0.19 cm. 7. The ulnar artery measurements are as follows: Proximal - 0.27 cm, Mid - 0.16 cm, Distal - 0.19 cm. Left Impression 1. There are normal triphasic Doppler waveforms in the subclavian, axillary, brachial, radial and ulnar arteries. 2. The arterial pressures and indices are as follows: brachial 174 mmHg, radial 199 mmHg (1.14) and ulnar 164 mmHg (0.94). 3. The index finger pressure is 199 mmHg with a normal finger/brachial index of 1.14. 4. The digits have adequate flow by PPG waveforms. 5. THE AVA'S IS ABNORMAL, THE HOWARD ARCH IS INTACT; HOWEVER, THERE IS DECREASED FLOW WITH COMPRESSIONS. 6. The radial artery measurements are as follows: Proximal - 0.28 cm, Mid - 0.19 cm, Distal - 0.18 cm. 7. The ulnar artery measurements are as follows: Proximal - 0.22 cm, Mid - 0.16 cm, Distal - 0.21 cm. Conclusions Summary Arterial segmental pressures, diameter measurements, palmar arch test, index finger digital pressure and digital PPG flow were performed bilaterally. The right and left arterial systems had normal triphasic Doppler waveforms and normal digital flow without obstruction. THE AVA'S TEST WAS ABNORMAL, THE HOWARD ARCH WAS INTACT; HOWEVER, THERE WAS DECREASED FLOW WITH COMPRESSIONS BILATERALLY. Arterial measurements are shown above. Signature Narrative Performed At [facility] - Upper Extremity Arterial Procedure [facility] Demographics [facility] Patient Name Kailash RENEE of Study03/14/2018 MARILYN [id number] Visit Number [id number] Gender Male Accession Number [id number] Date of Birth1940 [facility] Room [id number] Physician SonographLeslie Oliverting Alexa Reddy MD RVTPhysician Alba Sheppard, T Procedure Type of Study: Extremities Arteries: Upper Extremity Arterial Procedure, ARTERY PRESSURES ARMS, BILATERAL. Indications for Study:Possible radial artery harvest for CABG . Patient Status:STAT. Study Location:Vascular Lab. Technical Quality:Adequate visualization. Risk Factors History of Disease + + + + !Diagnosis!Date!Comments ! + + + + !History/Risk Factors:!!CAD, Anemia! + + + + !History/Risk Factors:!03/14/2018!S/P Left CEA 01/2018 at [facility]! + + + + Procedure Note Interface, External Ris In - 03/14/2018 11:42 PM [facility] - Upper Extremity Arterial Procedure Demographics Patient Name FIDE RENEE Date of Study 03/14/2018 MARILYN Age 77 Visit Number [id number] Gender Male Accession Number [id number] Date of 1940 Referring Suzi Cuevas Room Number 1006 Physician Sap Bpc Developer Win Alvarez Interpreting Alexa Reddy MD RVT Physician Alba Sheppard, T Procedure Type of Study: Extremities Arteries: Upper Extremity Arterial Procedure, ARTERY PRESSURES ARMS, BILATERAL. Indications for Study:Possible radial artery harvest for CABG . Patient Status:STAT. Study Location:Vascular Lab. Technical Quality:Adequate visualization. Risk Factors History of Disease + + + + !Diagnosis !Date !Comments ! + + + + !History/Risk Factors: ! !CAD, Anemia ! + + + + !History/Risk Factors: !03/14/2018!S/P Left CEA 01/2018 at [facility] ! + + + + Impressions Right Impression 1. There are normal triphasic Doppler waveforms in the subclavian, axillary, brachial, radial and ulnar arteries. 2. The arterial pressures and indices are as follows: brachial 206 mmHg, radial 171 mmHg (1.18) and ulnar 203 mmHg (1.17). 3. The index finger pressure is 181 mmHg with a normal finger/brachial index of 1.04. 4. The digits have adequate flow by PPG waveforms. 5. THE AVA'S IS ABNORMAL, THE HOWARD ARCH IS INTACT; HOWEVER, THERE IS DECREASED FLOW WITH COMPRESSIONS. 6. The radial artery measurements are as follows: Proximal - 0.20 cm, Mid - 0.16 cm, Distal - 0.19 cm. 7. The ulnar artery measurements are as follows: Proximal - 0.27 cm, Mid - 0.16 cm, Distal - 0.19 cm. Left Impression 1. There are normal triphasic Doppler waveforms in the subclavian, axillary, brachial, radial and ulnar arteries. 2. The arterial pressures and indices are as follows: brachial 174 mmHg, radial 199 mmHg (1.14) and ulnar 164 mmHg (0.94). 3. The index finger pressure is 199 mmHg with a normal finger/brachial index of 1.14. 4. The digits have adequate flow by PPG waveforms. 5. THE AVA'S IS ABNORMAL, THE HOWARD ARCH IS INTACT; HOWEVER, THERE IS DECREASED FLOW WITH COMPRESSIONS. 6. The radial artery measurements are as follows: Proximal - 0.28 cm, Mid - 0.19 cm, Distal - 0.18 cm. 7. The ulnar artery measurements are as follows: Proximal - 0.22 cm, Mid - 0.16 cm, Distal - 0.21 cm. Conclusions Summary Arterial segmental pressures, diameter measurements, palmar arch test, index finger digital pressure and digital PPG flow were performed bilaterally. The right and left arterial systems had normal triphasic Doppler waveforms and normal digital flow without obstruction. THE AVA'S TEST WAS ABNORMAL, THE HOWARD ARCH WAS INTACT; HOWEVER, THERE WAS DECREASED FLOW WITH COMPRESSIONS BILATERALLY. Arterial measurements are shown above. Signature Performing Organization Address City/[facility] Phone Number [facility] * Hemoglobin A1c (03/14/2018 4:01 AM [facility]) Only the most recent of 3 results within the time period is included. Hemoglobin A1C 5.3 4.3 - 6.1 % [facility] Specimen Blood - Arm, Right Performing Organization Address City/[facility]/Zipcode Phone Number [facility] [address] [place] [address] [facility] * XR chest 2 views (03/11/2018 10:16 PM [facility]) Narrative Performed At FINAL REPORT [employer] Chest x-ray Clinical History: SOB Comparison: No comparison Views: 2 Chest x-ray: The cardiac and mediastinal silhouettes are within normal limits. There is no evidence of a pneumothorax.There is no evidence of a pleural effusion.There is no evidence of overt cardiac failure. The visible regional skeleton is intact.There is no evidence of a focal parenchymal opacity. A right ventriculoperitoneal shunt is visualized. Impression: No active cardiopulmonary disease Signed: Maria Elena Davis MD Report Verified Date/Time:03/11/2018 22:23:23 Reading Location: [facility] [id number] Consult Reading Room Procedure Note Interface, External Ris In - 03/11/2018 10:25 PM [facility] FINAL REPORT Chest x-ray Clinical History: SOB Comparison: No comparison Views: 2 Chest x-ray: The cardiac and mediastinal silhouettes are within normal limits. There is no evidence of a pneumothorax. There is no evidence of a pleural effusion. There is no evidence of overt cardiac failure. The visible regional skeleton is intact. There is no evidence of a focal parenchymal opacity. A right ventriculoperitoneal shunt is visualized. Impression: No active cardiopulmonary disease Signed: Maria Elena Davis MD Report Verified Date/Time: 03/11/2018 22:23:23 Reading Location: [facility] C013W Consult Reading Room Performing Organization Address City/State/Zipcode Phone Number GE RIS after 03/31/2017 Insurance Payer Benefit Subscriber ID Type Phone Address Plan / Group [facility] - AARP/MEDIC xxxxxxxxx MEDICARE MGD CARE ARE COMPLETE MEDICAID MEDICAID xxxxxxxxx Medicaid OF [place] Advance Directives For more information, please contact: [address] [address] Date Inactivated Comments Code Status Date Activated Full Code 03/11/2018 1:22 PM This code status was determined by: Patient
[2018-04-01] MEDS ORDERED: SODIUM CHLORIDE 0.9% 1000ML 0 ML ONE (15:33)
[2018-04-01 17:25] LABS: BASOPHILS % 0.4 % (0.0-1.0); EOSINOPHILS # (AUTO) 0.1 (0.0-0.4); EOSINOPHILS % 1.2 % (0.0-6.0); HEMATOCRIT 29.8 % (38.2-49.6); LYMPHOCYTES # (AUTO) 1.5 (1.0-3.2); LYMPHOCYTES % 17.7 % (18.0-39.1); MEAN CORPUSCULAR HEMOGLOBIN 26.7 pg (28-32); MEAN CORPUSCULAR HGB CONC 30.2 g/dL (31-35); MEAN CORPUSCULAR VOLUME 88.4 fL (81-99); MONOCYTES # (AUTO) 0.8 (0.2-0.8); MONOCYTES % 9.6 % (4.4-11.3); NEUTROPHILS # (AUTO) 5.9 (2.1-6.9); NEUTROPHILS % 70.7 % (38.7-80.0); PLATELET COUNT 510 x10e3/uL (140-360); RED BLOOD COUNT 3.37 x10e6/uL (4.3-5.7); RED CELL DISTRIBUTION WIDTH 17.2 % (11.7-14.4)
[2018-04-01 17:30] LABS: INR 0.98; PROTHROMBIN TIME 13.9 seconds (11.9-14.5)
[2018-04-01 17:31] LABS: PARTIAL THROMBOPLASTIN TIME 32.8 seconds (23.8-35.5)
[2018-04-01 17:39] LABS: ALBUMIN/GLOBULIN RATIO 0.8 (0.8-2.0); ANION GAP 12.3 mmol/L (8-16); CALCIUM 8.9 mg/dL (8.4-10.2); CREATININE, SERUM 1.36 mg/dL (0.72-1.25); POTASSIUM 4.3 mmol/L (3.5-5.1)
[2018-04-01 17:45] LABS: CREATINE KINASE MB 1.1 ng/mL (0-5.0)
--- NOTE | 2018-04-01 17:51 | NUR ---
NOTIFIED DR TIFFANIE BREWER I 1.33. NO NEW ORDERS NOTED AT THIS TIME.
[2018-04-01 18:37] LABS: CLARITY,URINE CLEAR (CLEAR); COLOR,URINE YELLOW (YELLOW); KETONES,URINE NEGATIVE (NEGATIVE); LEUKOCYTE ESTERASE ,URINE NEGATIVE (NEGATIVE); NITRITE,URINE NEGATIVE (NEGATIVE); PROTEIN,URINE DIPSTICK NEGATIVE (NEGATIVE); URINE UROBILINOGEN 0.2 mg/dL (0.2 - 1)
[2018-04-01 18:38] LABS: BILIRUBIN,URINE NEGATIVE (NEGATIVE)
[2018-04-01 18:52] LABS: AMORPHOUS SEDIMENT,URINE FEW (FEW); EPITHELIAL CELLS,URINE RARE /LPF
--- NOTE | 2018-04-01 19:29 | Diagnostic Imaging Report ---
EXAMINATION: CHEST SINGLE (PORTABLE) INDICATION: Bradycardia and shortness of breath. COMPARISON: 09/06/2017. FINDINGS: TUBES and LINES: Right neck central venous catheter with distal tip projected on the cavoatrial junction. LUNGS and PLEURA: Increased density in the mid to lower left hemithorax suggestive of pleural effusion and associated atelectasis versus consolidation in the proper clinical setting; this is a new finding since the prior examination. Mild prominence of the coronary vasculature bilaterally. No pneumothorax. HEART AND MEDIASTINUM: The cardiac silhouette is moderately enlarged. Median sternotomy wires and mediastinal clips. BONES AND SOFT TISSUES: No acute osseous lesion. UPPER ABDOMEN: No free air under the diaphragm. IMPRESSION: Increased density in the mid to lower left hemithorax suggestive of pleural effusion and associated atelectasis versus consolidation in the proper clinical setting; this is a new finding since the prior examination. Signed by: Dr. Keyona Parr M.D. on 04/01/2018 7:26 PM
--- NOTE | 2018-04-01 20:55 | NUR ---
PT HAD CABG LAST WEEK AT [facility] DT WITH DR. STEVENS
--- NOTE | 2018-04-01 20:57 | NUR ---
TRANSFER INITIATED TO [facility]
[2018-04-01] MEDS ORDERED: VANCOMYCIN 1GM/NS 250 ML 250 ML IV STA (21:01)
[2018-04-01] MEDS ORDERED: GLIMEPIRIDE1 MG PO (21:06)
[2018-04-01] MEDS ORDERED: AMLODIPINE BESYL5 MG PO (21:06)
[2018-04-01] MEDS ORDERED: LEVOTHYROXINE88 MCG PO ×2 (21:41→21:49)
[2018-04-01] MEDS ORDERED: ACETAMINOPHEN325 M1 PO (21:45)
[2018-04-01] MEDS ORDERED: AMLODIPINE BESY10 MG PO (21:45)
[2018-04-01] MEDS ORDERED: PLAVIX75 MG PO (21:46)
[2018-04-01] MEDS ORDERED: ATORVASTATIN CA20 MG PO (21:46)
[2018-04-01] MEDS ORDERED: ASPIRIN EC81 MG PO (21:46)
[2018-04-01] MEDS ORDERED: DOCUSATE SODIU100 M1 PO (21:47)
[2018-04-01] MEDS ORDERED: ARICEPT5 MG PO (21:47)
[2018-04-01] MEDS ORDERED: LASIX40 MG PO (21:48)
[2018-04-01] MEDS ORDERED: FERROUS SULFAT325 MG PO (21:48)
[2018-04-01] MEDS ORDERED: LANTUS 3ML100 UNITS/ SC (21:49)
[2018-04-01] MEDS ORDERED: METOPROLOL TART50 MG PO (21:50)
[2018-04-01] MEDS ORDERED: NAMENDA10 MG PO (21:50)
[2018-04-01] MEDS ORDERED: TRAZODONE HCL50 MG PO (21:50)
[2018-04-01] MEDS ORDERED: ZOFRAN8 MG PO (21:51)
--- NOTE | 2018-04-01 22:35 | NUR ---
REPORT CALLED TO DONITA KAMARA
--- NOTE | 2018-04-01 23:01 | NUR ---
[facility] CALLED FOR TRANSPORT
[2018-04-02 00:01] VITALS: BP 146/51
== END 2018-04-02 00:02 | disposition short-term general hospital (02) ==
LOC: ER 15:26
DX: R00.1 Bradycardia, unspecified (principal); I50.9 Heart failure, unspecified; I51.7 Cardiomegaly; I10 Essential (primary) hypertension; E11.9 Type 2 diabetes mellitus without complications; I25.10 Atherosclerotic heart disease of native coronary artery without angina pectoris; Z95.1 Presence of aortocoronary bypass graft; Z86.73 Personal history of transient ischemic attack (TIA), and cerebral infarction without residual deficits
CPT/HCPCS: 36415; 71045; 80053; 81001; 82550; 82553; 83735; 83880; 84484; 85025; 85610; 85730; 93005; 99284; J3370; J7030